=== PATIENT | male | born 1950 | race Caucasian/White ===

== ENCOUNTER 2017-01-29 12:40 | Observation (INO) | payer OTHER, SELFPAY | END 2017-01-31 10:15 | disposition home or self-care (01) | PROVIDERS: Admitting Provider Internal Medicine Adolescent Medicine; Family Provider Internal Medicine Adolescent Medicine; Visit Provider Internal Medicine Adolescent Medicine | DX: J10.1 Influenza due to other identified influenza virus with other respiratory manifestations (principal); E86.0 Dehydration | CPT/HCPCS: 36415; 70450; 71020; 80048; 80053; 85025; 86738; 87040; 87070; 87205; 93005; 94760; 95816; G0378 ==

== ENCOUNTER → 2017-02-05 | Outpatient (CLI) | payer OTHER, SELFPAY | PROVIDERS: Visit Provider Nurse Practitioner Family | DX: N17.9 Acute kidney failure, unspecified (principal) | CPT/HCPCS: 36415; 80053 ==

== ENCOUNTER → 2020-01-08 09:07 | Outpatient (CLI) | payer BC, SELFPAY ==
[2020-01-08 10:08] LABS: Basophils % 0.7 % (0.1-2.0); Eosinophils # 0.3 K/mm3 (0.0-0.4); Eosinophils % 4.7 % (0.1-12.0); Hematocrit 50.4 % (42.0-52.0); Hemoglobin 16.7 g/dL (14.1-18.0); Lymphocytes # 1.4 K/mm3 (0.7-4.5); Lymphocytes % 24.3 % (10-50); Mean Corpuscular HGB Conc 33.1 g/dL (31.8-35.4); Mean Corpuscular Hemoglobin 30.1 pg (27.0-31.2); Mean Platelet Volume 7.3 fl (7.4-10.4); Monocytes # 0.4 K/mm3 (0.1-1.0); Monocytes % 6.8 % (1.7-9.3); Neutrophils # 3.6 K/mm3 (1.8-7.8); Neutrophils % 63.6 % (37.0-80.0); Platelet Count 202 K/mm3 (142-424); Red Blood Count 5.53 M/mm3 (4.60-6.20); Red Cell Distribution Width 13.7 % (11.5-17.5); White Blood Count 5.7 K/mm3 (4.8-10.8)
[2020-01-08 11:09] LABS: Chloride 105 mmol/L (98-107); Potassium 4.5 mmoL/L (3.5-5.1); Sodium 140 mmol/L (136-145)
[2020-01-08 11:11] LABS: Blood Urea Nitrogen 24 mg/dl (9-20); Estimated Glomerular Filt Rate 55 ml/min (>60); GFR (African American) 67 ML/MIN (>60)
[2020-01-08 11:12] LABS: Alanine Aminotransferase 26 U/L (12-78); Albumin Level 4.3 g/dl (3.5-5.0); Albumin/Globulin Ratio 1.5 (1.1-1.8); Alkaline Phosphatase 97 U/L (38-126); Anion Gap 10.5 mEq/L (5-15); Aspartate Amino Transferase 25 U/L (17-59); Bilirubin,Total 0.8 mg/dl (0.2-1.3); Calcium 9.4 mg/dl (8.4-10.2); Carbon Dioxide 29 mmol/L (22.0-30.0); Cholesterol 210 mg/dl (140-200); Globulin 2.9 g/dL (1.3-3.2); Glucose 108 mg/dl (74-100); HDL Cholesterol 30 mg/dl (40-60); Total Protein,Serum 7.2 g/dl (6.3-8.2); Triglycerides 224 mg/dl (30-150); VLDL Cholesterol 45 mg/dL (0-40)
[2020-01-08 11:24] LABS: Direct LDL Cholesterol 130.21 mg/dL (100-129)
[2020-01-08 12:51] LABS: Hemoglobin A1C 5.7 % (4.0-6.0)
[2020-01-08 18:51] LABS: Prostate Specific Ag Screen 0.5 ng/ml (0.0-4.0)
== END ==
PROVIDERS: Visit Provider Internal Medicine Adolescent Medicine
DX: R73.9 Hyperglycemia, unspecified (principal); K21.9 Gastro-esophageal reflux disease without esophagitis
CPT/HCPCS: 36415; 80053; 80061; 83036; 85025; G0103

== ENCOUNTER → 2020-10-14 08:39 | Outpatient (CLI) | payer BC, SELFPAY | PROVIDERS: Visit Provider Urology | DX: Z01.812 Encounter for preprocedural laboratory examination (principal); Z20.822 Contact with and (suspected) exposure to COVID-19; C67.9 Malignant neoplasm of bladder, unspecified | CPT/HCPCS: U0003 ==

== ENCOUNTER 2020-10-17 08:04 | Day surgery (SDC) | payer BC, SELFPAY ==
[2020-10-11 13:59] VITALS: BMI 32.3
[2020-10-17 08:19] VITALS: BP 113/63; PULSE 66; RESP 18; TEMP 36.2; O2SAT 97
[2020-10-17 09:43] VITALS: BP 146/94; PULSE 64; RESP 16; TEMP 36.4; O2SAT 96
--- NOTE | 2020-10-17 12:05 | HMH.OPNOTE ---
Date of procedure: 10/17/20 Pre-op Diagnosis:: History of bladder cancer Post-op Diagnosis:: History of bladder cancer without evidence of recurrence today Procedure performed:: Surveillance cystoscopy Surgeon:: Timothy Serrano MD Anesthesia: local Estimated blood loss (mL): 0 Clinical Note:: Patient is a 69-year-old white male with a history of bladder cancer. He was initially diagnosed in 2012 and was treated with TURBT. He has had no recurrences since then and presents for surveillance cystoscopy today. He denies any interval gross hematuria or lower urinary tract symptoms. Operative findings:: No evidence of bladder tumor recurrence today. Operative note:: Patient taken to the cystoscopy suite after informed consent was obtained. He was prepped and draped in the standard surgical fashion and 2% lidocaine placed into the urethra and the urethra clamped for 5 minutes. After 5 minutes the flexible cystoscope introduced into the urethral meatus. Passed to the prostatic urethra which showed some moderate hyperplasia. The bladder was entered and examined in a systematic fashion. There is no evidence of bladder tumor recurrence or other mucosal abnormalities. There is no evidence of trabeculation, cellules or diverticula. The ureteral orifices in their normal anatomic position with clear efflux of urine. The scope was retroflexed showing a small median lobe. Scope then removed. The patient tolerated the procedure well and there were no complications. We discussed the findings today and the we will see him back in 1 year for surveillance. Condition: stable Disposition: same day Specimens:: None Complications:: None
== END 2020-10-17 09:52 | disposition home or self-care (01) ==
LOC: OUTP 08:06
PROVIDERS: PCP Internal Medicine Adolescent Medicine; Visit Provider Urology
PROC: (CPT 52000; principal; 2020-10-17 09:00)
DX: Z08 Encounter for follow-up examination after completed treatment for malignant neoplasm (principal); Z85.51 Personal history of malignant neoplasm of bladder; Z90.6 Acquired absence of other parts of urinary tract; K21.9 Gastro-esophageal reflux disease without esophagitis; M19.90 Unspecified osteoarthritis, unspecified site; Z90.49 Acquired absence of other specified parts of digestive tract; Z83.3 Family history of diabetes mellitus; Z82.49 Family history of ischemic heart disease and other diseases of the circulatory system; Z80.9 Family history of malignant neoplasm, unspecified
CPT/HCPCS: 52000

== ENCOUNTER → 2021-02-17 15:10 | Outpatient (CLI) | payer BC, SELFPAY | PROVIDERS: Visit Provider Nurse Practitioner Family | DX: U07.1 COVID-19 (principal) | CPT/HCPCS: C9803; U0003; U0005 ==

== ENCOUNTER → 2021-06-20 14:16 | Outpatient (CLI) | payer BC, SELFPAY ==
--- NOTE | 2021-06-20 14:22 | CA_ITS ---
APPROVED REPORT EXAM: Comprehensive 2D, Doppler, and color-flow Echocardiogram Tobacco Prevention Health Educator: Yasmeen Bass RVT Ht: 6 ft 0 in Wt: 233lbs BSA: 2.27 BP: 140/82 mmHg Indications: DYSPENA,DIZZINESS 2D Dimensions LVOT 2.03 cm (M/F) 1.5-2.5 LA Volume 24.90 mL LA Volume Index 10.96 mL/m2 (M/F) 16-34 M-Mode Dimensions RVDd 2.49 cm (0.9-2.6) LA Diam 4.08 cm (1.9-4.0) LVDd 4.55 cm (3.5-5.7) Ao Diam 3.63 cm (2.0-3.7) LVDs 2.74 cm (3.5-5.7) IVSd 1.49 cm (0.6-1.1) PWd 0.97 cm (0.6-1.1) EF (Teich) 70.50% FS 39.80% EDV (Teich) 94.90 mL TAPSE 2.81 (<1.7) ESV (Teich) 28.00 mL LV Diastology E Decel Time 187.00 (160-240 msec) E/A Ratio 0.7 MED E' 6.90 (< 7 cm/sec) E'/MED E' Ratio 9.38 (>14) LAT E' 8.50 (<10 cm/sec) E/LAT E' Ratio 7.61 (>14) Aortic Valve AO Peak GR. 7.90 mmHg Mitral Valve MV E Max Avery. 65.00 (40-130 cm/s) MV A Velocity 88.00 (40-130 cm/s) E/A Ratio 0.74 MV Decel. Time 187.00 (160-240 ms) MV PHT 55.00 ms Pulmonary Valve PV Peak Velocity 79.00 (50-150 cm/s) Tricuspid Valve TR P. Velocity 281.00 cm/s RAP Estimate 10.00 mmHg RVSP 41.70 mmHg Left Ventricle Left atrium is mildly enlarged, left ventricle is normal size, mild concentric left ventricular hypertrophy, estimated ejection fraction 55% with no regional wall motion abnormality, grade 1 diastolic dysfunction seen without tissue Doppler evidence of raise left atrial pressure. Right Ventricle Right atrium and right ventricle are normal size and contractility. Aortic Valve Aortic valve is minimally thickened and calcified without aortic stenosis, there is trace aortic insufficiency. Mitral Valve Mitral valve is grossly normal, there is trace mitral regurgitation. Tricuspid Valve Tricuspid grossly normal, there is trace tricuspid regurgitation, tricuspid regurgitation jet velocity is inadequate for calculation of the right ventricular systolic pressure. Pulmonic Valve Pulmonic valve is poorly visualized. Great Vessels Aortic root is normal size. Inferior vena cava is poorly visualized. Pericardium No significant pericardial effusion noted. Conclusion 1. Mildly enlarged left atrium, normal left ventricular size, mild concentric left ventricular hypertrophy, estimated ejection fraction 55% with no regional wall motion abnormality, grade 1 diastolic dysfunction seen without tissue Doppler evidence of raise left atrial pressure. 2. Trace aortic, mitral and tricuspid regurgitation. 3. No significant pericardial effusion. 4. Inferior vena cava is poorly visualized. Electronically signed by : Silver Kang MD 06/20/2021 21:33:59
--- NOTE | 2021-06-20 14:22 | CA_ITS ---
FINAL REPORT TECHNIQUE: Color Doppler, duplex Doppler and sullivan scale sonography of the bilateral neck arterial vasculature was performed. Velocities were measured in the carotid arteries. Stenosis evaluation based on the validated velocity criteria. CLINICAL HISTORY: DIZZINESS,HTN FINDINGS: The peak systolic velocity of the right common carotid artery is 85 cm/s. The peak systolic velocity of the right internal carotid artery is 90 cm/s and end diastolic velocity 21 cm/s. The ICA/CCA ratio is 1.06. A mild amount of plaque is present. The right external carotid artery is patent. The right vertebral artery is patent with antegrade flow. The peak systolic velocity of the left common carotid artery is 117 cm/s. The peak systolic velocity of the left internal carotid artery is 104 cm/s and end diastolic velocity 26 cm/s. The ICA/CCA ratio is 1.13. A mild amount of plaque is present. The left external carotid artery is patent.The left vertebral artery is patent with antegrade flow. IMPRESSION: Less than 50% bilateral carotid stenosis. Bilateral patent vertebral arteries with antegrade flow. Reviewed, Interpreted and Dictated by Servando Vazquez III, MD Transcribed by Medina Johnson Authenticated by Servando Vazquez III, MD on 06/20/2021 04:32:[address] [facility]
== END ==
LOC: RT 14:17
PROVIDERS: PCP Internal Medicine Adolescent Medicine; Visit Provider Nurse Practitioner Family
DX: R03.0 Elevated blood-pressure reading, without diagnosis of hypertension (principal); R29.898 Other symptoms and signs involving the musculoskeletal system
CPT/HCPCS: 93306; 93880

== ENCOUNTER → 2021-10-13 09:15 | Outpatient (CLI) | payer OTHER, SELFPAY | PROVIDERS: PCP Internal Medicine Adolescent Medicine; Visit Provider Urology | DX: Z01.812 Encounter for preprocedural laboratory examination (principal); Z20.822 Contact with and (suspected) exposure to COVID-19; C67.9 Malignant neoplasm of bladder, unspecified | CPT/HCPCS: C9803; U0003; U0005 ==

== ENCOUNTER 2021-10-16 10:34 | Day surgery (SDC) | payer OTHER, SELFPAY ==
[2021-10-16 10:51] VITALS: BP 148/74; PULSE 74; RESP 17; TEMP 36.3; O2SAT 96; BMI 34.4
[2021-10-16 11:19] VITALS: BP 163/79; PULSE 64; RESP 18; TEMP 37.1; O2SAT 96
--- NOTE | 2021-10-16 11:22 | EXP.OP.NOTE ---
Date of procedure: 10/16/21 Pre-op Diagnosis:: History of bladder cancer Post-op Diagnosis:: History of bladder cancer without evidence of recurrence today Procedure performed:: Surveillance cystoscopy Surgeon:: Timothy Serrano MD Anesthesia: local Estimated blood loss (mL): 0 Clinical Note:: 70-year-old white male with history of bladder cancer. His initial tumor was noted in 2012 and he underwent TURBT. He has had no recurrences since then. Operative findings:: No evidence of bladder tumor recurrence today. Operative note:: Patient taken to the cystoscopy suite after informed consent was obtained. While on the stretcher he was prepped and draped in the standard surgical fashion in the supine position. 2% lidocaine placed into the urethra and clamped for 5 minutes. After 5 minutes the flexible cystoscope introduced into the urethral meatus. Passed to the prostatic urethra which showed trilobar hyperplasia. The bladder was entered and examined in a systematic fashion. There is no evidence of recurrent bladder tumors, mucosal abnormalities, stones, trabeculation or cellule formation. The ureteral orifices in their normal anatomic position with clear efflux of urine. Scope was retroflexed showing no evidence of a median lobe. Scope then removed. Patient tolerated procedure well. We will see him back in 1 year with surveillance cystoscopy. We discussed at that time he would be 10 years out from his initial bladder tumor in the we may suspend any further cystoscopies after that. Condition: stable Disposition: same day Specimens:: None Complications:: None
== END 2021-10-16 11:24 | disposition home or self-care (01) ==
PROVIDERS: PCP Internal Medicine Adolescent Medicine; Visit Provider Urology
PROC: (CPT 52000; principal; 2021-10-16 11:30)
DX: Z12.6 Encounter for screening for malignant neoplasm of bladder (principal); Z85.51 Personal history of malignant neoplasm of bladder
CPT/HCPCS: 52000

== ENCOUNTER → 2022-06-05 06:10 | Outpatient (CLI) | payer MEDICARE, SELFPAY ==
--- NOTE | 2022-06-05 06:22 | US_ITS ---
FINAL REPORT CLINICAL HISTORY: Scrotal mass FINDINGS: Sonographic images of the scrotum were obtained. There is a 3.1 cm cystic mass in the right hemiscrotum, may represent a large epididymal cyst or other cystic mass. There is a 2nd mass in the right hemiscrotum measuring 1.2 cm which appears solid. Finding is worrisome for neoplasm. Small hydroceles are seen bilaterally. IMPRESSION: Two masses in the right hemiscrotum of uncertain etiology. Consider follow-up in 3-6 months. Reviewed, Interpreted and Dictated by Servando Vazquez III, MD Transcribed by Susu Yates Authenticated and [facility] [place]
== END ==
LOC: RAD 06:11
PROVIDERS: PCP Internal Medicine Adolescent Medicine; Visit Provider Urology
DX: N50.89 Other specified disorders of the male genital organs (principal)
CPT/HCPCS: 76870

== ENCOUNTER → 2022-09-05 14:35 | Outpatient (CLI) | payer MEDICARE, SELFPAY ==
--- NOTE | 2022-09-05 14:38 | US_ITS ---
FINAL REPORT TECHNIQUE: Sonographic images of the testicles and scrotum were obtained in the longitudinal and transverse planes. CLINICAL HISTORY: CYST COMPARISON: 06/05/2022 FINDINGS: The right testicle measures 3.6 x 2.3 x 2.9 centimeters. There is no intratesticular mass. There is a hypoechoic extratesticular mass measuring 2.5 cm with low-level internal echoes. No internal blood flow. The left testicle measures 3.8 x 2.0 x 3.5 centimeters. There is no intratesticular mass. The epididymis is within normal limits. There is a small left varicocele. Color imaging reveals no evidence of testicular torsion. IMPRESSION: No evidence of intratesticular mass or testicular torsion. Extratesticular hypoechoic mass right hemiscrotum with no internal blood flow. This is different in echogenicity than on prior and could represent complex spermatocele. If not obtained previously, consider urologic consult. Reviewed, Interpreted and Dictated by Yamilka Vu MD Transcribed by Yusra John Authenticated and [facility]
== END ==
LOC: RAD 14:35
PROVIDERS: PCP Internal Medicine Adolescent Medicine; Visit Provider Urology
DX: N50.3 Cyst of epididymis (principal)
CPT/HCPCS: 76870

== ENCOUNTER → 2023-01-24 07:46 | Outpatient (CLI) | payer MEDICARE, SELFPAY ==
--- NOTE | 2023-01-24 07:51 | US_ITS ---
FINAL REPORT TECHNIQUE: Ultrasound images of the abdominal aorta were obtained. CLINICAL HISTORY: AAA SCREENING COMPARISON: None FINDINGS: ULTRASOUND OF THE ABDOMINAL AORTA The aorta measures up to 2.3 cm. The bifurcation is normal. IMPRESSION: No evidence of abdominal aortic aneurysm. Reviewed, Interpreted and Dictated by Servando Vazquez III, MD Transcribed by Yusra John Authenticated and [facility]
== END ==
LOC: RAD 07:47
PROVIDERS: PCP Nurse Practitioner Family; Visit Provider Nurse Practitioner Family
DX: Z82.49 Family history of ischemic heart disease and other diseases of the circulatory system (principal); Z13.6 Encounter for screening for cardiovascular disorders
CPT/HCPCS: 76705

== ENCOUNTER 2023-05-21 09:32 | Outpatient (CLI) | payer MEDICARE, SELFPAY ==
--- NOTE | 2023-05-21 09:41 | XR_ITS ---
FINAL REPORT CLINICAL HISTORY: COUGH..cold x 3 to 4 weeks COMPARISON: None FINDINGS: Two views of the chest were obtained. The heart size and pulmonary vascularity are within normal limits. The mediastinum is normal. There are mild bibasilar opacities which are favored to represent atelectasis over pneumonia. There is no pneumothorax. The bony thorax is intact. IMPRESSION: Mild bibasilar opacities favor atelectasis over pneumonia. Reviewed, Interpreted and Dictated by Servando Vazquez III, MD Transcribed by Yusra John Authenticated and [facility]
== END 2023-05-21 23:59 ==
PROVIDERS: PCP Nurse Practitioner Family; Visit Provider Nurse Practitioner Family
DX: R05.3 Chronic cough (principal)
CPT/HCPCS: 71046

== ENCOUNTER → 2023-10-03 09:50 | Day surgery (SDC) | payer MEDICARE, SELFPAY ==
[2023-10-01 09:56] VITALS: BMI 35.4
[2023-10-03] VITALS (7 sets, daily range): BP systolic 104–163; BP diastolic 67–93; PULSE 55–69; RESP 16–18; TEMP 36.3; O2SAT 93–97
[2023-10-03] MEDS: LACTATED RINGERS 1000ML 1,000 ML 25 ML IV (10:01)
--- NOTE | 2023-10-03 11:16 | EXP.ANES.CKL ---
[facility] Disclaimer: The information contained in this section may have been updated after the patient was seen, as this information can be updated by other users. Medical History Colonoscopy planned Arthropathy of ankle and foot Rotator cuff arthropathy of right shoulder Acid reflux Bladder cancer Surgical History History of appendectomy Family History Other No significant family history Social History Smoking Status: Never smoker second hand exposure: No alcohol intake: never substance use type: denies use current occupational status: employed and retired Travel in the last 8 weeks: None household members: spouse housing: house current occupation: lead electrician current occupational exposures/hazards: Yes caffeine: Yes [facility] Anesthesia Checklist Patient Identification Patient Identification: Arm Band Structural Data Admitted From: Home Planned Operative Procedure/s: EGD/Colonoscopy Consent for Planned Operative Procedure(s) Verified: Yes Verified Documents: Surgical Consent and History and Physical NPO Status Verified Time NPO: 00:00 Additional verifications Anesthesia Reactions: No Airway Assessment Mallampati Score:: Class II C-Spine Mobility Assessed: Yes TMJ Mobility Assessed: Yes Dentition: Good Dentition Neurological Assessment Level of Consciousness: Awake, Alert and Appropriate Anesthesia Plan Anesthesia Risk discussed: Yes Anesthesia Plan: Verified ASA Class: II Anesthesia Type: MAC
--- NOTE | 2023-10-03 11:31 | HMH.SCOPE ---
Procedure: Date: 10/03/23 Patient Date of :: 1950 Procedure Performed:: EGD & biopsies Indications:: Chronic GERD Performing Provider:: Emilio Martinez MD Referring Provider:: Mela Sellers APRN Sedation:: Propofol Procedure:: The gastroscope was gently passed through the incisoral orifice into the oral cavity and under direct visualization the esophagus was intubated. The endoscope was passed down the esophagus, through the stomach, and into the duodenum. Color, texture, mucosa, and anatomy of the esophagus, stomach, and duodenum were carefully examined with the scope. Findings:: Oropharynx: normal Esophagus: Area of whitish plaques distal esophagus near EG junction, biopsied, EG Junction: intact at 40 cm, small hiatus hernia noted Cardia: normal Fundus: normal Body: normal Antrum: normal Duodenal bulb: normal Duodenum (second and third portion): normal Impression: Leukoplakia of distal esophagus Small hiatus hernia Specimens:: Esophagus Recommendations:: Repeat EGD and biopsies in 1-2 years or sooner in view of current findings pending pathology results Complications:: None Estimated blood obtained (mL): 0 Colonoscopy Component Colonoscopy Component Was a colonoscopy performed during today's procedure?: No
--- NOTE | 2023-10-03 11:37 | HMH.SCOPE ---
Procedure: Date: 10/03/23 Patient Date of :: 1950 Procedure Performed:: Colonoscopy and polypectomy Indications:: Colon cancer screening Performing Provider:: Emilio Martinez MD Referring Provider:: Mela Sellers APRN Sedation:: Propofol Procedure:: After placing the patient in the left lateral decubitus position, the colonoscopy was gently inserted into the rectum and under direct visualization advanced to the cecum which was identified by transillumination in the right lower quadrant, identification of the ileocecal valve, appendiceal orifice, and cecal strap. Color, texture, mucosa, and anatomy of the colon were carefully examined with the scope. Findings:: Anal canal: normal Rectum: normal Sigmoid colon: normal without polyps or inflammatory changes, multiple diverticuli noted Descending colon: normal without polyps or inflammatory changes Splenic flexure: normal Transverse colon: normal, 0.75 cm adenomatous polyp identified in distal region, snared and removed. Hepatic flexure: normal Ascending colon: normal without polyps or inflammatory changes, scattered diverticuli noted Cecum: normal Terminal ileum: not visualized Impression: Adenomatous colon polyp, distal transverse colon Scattered diverticulosis Specimens:: Polyp Recommendations:: Follow up examination in about THREE years or so, sooner if clinically indicated in view of findings of polyps. Complications:: None Estimated blood obtained (mL): 0 Colonoscopy Component Colonoscopy Component Was a colonoscopy performed during today's procedure?: Yes Recommended follow up colonoscopy of at least 10 years?: No If no, follow up colonoscopy recommended in ___ years?: Three Reason for not recommending >/= 10 yr follow-up interval?: Polyp
== END | disposition home or self-care (01) ==
PROVIDERS: PCP Nurse Practitioner Family; Visit Provider Internal Medicine Gastroenterology
PROC: 0DJ08ZZ Inspection of Upper Intestinal Tract, Via Natural or Artificial Opening Endoscopic (ICD-10-PCS; CPT 43235; principal; 2023-10-03 11:00)
DX: Z12.11 Encounter for screening for malignant neoplasm of colon (principal); Z86.010 Personal history of colon polyps; K57.90 Diverticulosis of intestine, part unspecified, without perforation or abscess without bleeding; K22.89 Other specified disease of esophagus; K44.9 Diaphragmatic hernia without obstruction or gangrene; K21.9 Gastro-esophageal reflux disease without esophagitis; D12.3 Benign neoplasm of transverse colon
CPT/HCPCS: 43239; 45385; 88305; J7120

== ENCOUNTER 2024-02-24 14:26 | Emergency (ER) | payer MEDICARE, SELFPAY ==
[2024-02-24] VITALS (14 sets, daily range): BP systolic 142–184; BP diastolic 92–134; PULSE 65–89; RESP 18–20; TEMP 36.8–37.1; O2SAT 92–98; BMI 31.8
--- NOTE | 2024-02-24 14:37 | ECG_ITS ---
APPROVED REPORT Exam: Resting ECG HR:84 bpm ECG Measurements Heart Rate 84 AXES MT 177 P 26 QRSd 93 QRS 25 QT 347 T 20 QTc 388 Conclusion SINUS RHYTHM NORMAL ECG UNCONFIRMED REPORT Electronically signed by : MACHO FRANCIS, 02/28/2024 05:50:21
--- NOTE | 2024-02-24 14:40 | CT_ITS ---
FINAL REPORT TECHNIQUE: Multiple axial CT angiography images were performed from the foramen magnum to the vertex before and during IV contrast administration. This study was performed with techniques to keep radiation doses as low as reasonably achievable (ALARA). Individualized dose reduction techniques using automated exposure control or adjustment of mA and/or kV according to the patient's size were employed. CLINICAL HISTORY: possible stroke, L dysequilibrium FINDINGS: CTA HEAD: The major intracranial arterial system is patent without hemodynamically significant stenosis or major vessel occlusion.No aneurysm is identified. IMPRESSION: No acute intracranial hemorrhage or large acute cortical infarct. No evidence of vascular injury, aneurysm, hemodynamically significant stenosis or major vessel occlusion of the intracranial arterial system. Reviewed, Interpreted and Dictated by Fransisco Stoddard MD Transcribed by Lara Jennings Authenticated and [facility]
--- NOTE | 2024-02-24 14:40 | CT_ITS ---
FINAL REPORT TECHNIQUE: Axial CT images were performed through the head. Coronal reformatted images were submitted. This study was performed with techniques to keep radiation doses as low as reasonably achievable (ALARA). Individualized dose reduction techniques using automated exposure control or adjustment of mA and/or kV according to the patient's size were employed. CLINICAL HISTORY: possible stroke, L dysequilibrium FINDINGS: Small low-attenuation foci are seen in the deep white matter bilaterally, right greater than left likely related to old lacunar infarcts. The ventricles are normal in size. There is no evidence of hemorrhage. There is no mass or edema identified. There is no abnormal extra-axial fluid seen. There is mild mucoperiosteal thickening of the left maxillary sinus. IMPRESSION: No acute intracranial process. Reviewed, Interpreted and Dictated by Fransisco Stoddard MD Transcribed by Lara Jennings Authenticated and [facility]
--- NOTE | 2024-02-24 14:40 | CT_ITS ---
FINAL REPORT TECHNIQUE: NASCET technique utilized for stenosis evaluation. CLINICAL HISTORY: possible stroke, L dysequilibrium FINDINGS: RIGHT CAROTID: There is extensive plaque at the right carotid bulb with significant stenosis at the apex. This is best seen on axial image 68 of series 6. Stenosis measures approximately 70%. LEFT CAROTID: Bulky calcification is seen at the origin of the left ICA with less than 50% stenosis. VERTEBRALS: The vertebrals are patent and symmetric. No significant stenosis is present. IMPRESSION: Significant stenosis at the right carotid bulb apex of approximately 70%. Less than 50% stenosis of the origin of the left ICA. Reviewed, Interpreted and Dictated by Fransisco Stoddard MD Transcribed by Lara Jennings Authenticated and [facility]
--- NOTE | 2024-02-24 14:41 | ED_ITS ---
Discharge Plan Disposition Patient Disposition: Xfer Short-Term Hosp Chief Complaint: Neuro Symptoms/Deficit Prescriptions Prescriptions: No Action levocetirizine [Xyzal] 5 mg Tablet 5 mg PO DAILY aspirin 81 mg Capsule 81 mg PO DAILY Referrals Follow up/Referrals: Mela Sellers APRN [Primary Care Provider] - See instructions Clinical Impressions Clinical Impression: Carotid artery stenosis, symptomatic, Acute left-sided weakness Print Language Print Language: [place] Discharge ED Provider: Ricky Carbajal General Adult HPI <Darwin Cervantes MD - Last Filed: 02/24/24 15:03> General Chief complaint: Neuro Symptoms/Deficit Stated complaint: numbness L side Time Seen by Provider: 02/24/24 14:38 History of Present Illness HPI narrative: Patient is 73-year-old male with past medical history of hyperlipidemia who presents emergency department for evaluation of strokelike symptoms. Onset was acute, 8:30 AM this morning he had tingling as if it was static he with his arm asleep followed by an similar feeling in his left lower extremity. No right- sided symptoms, no visual symptoms or speech difficulty at that time. Throughout the morning and has progressed from paresthesias to feelings of disequilibrium in his left arm and left leg. Some subjective weakness in coordination of his movements. No trauma. No chest pain. No other acute complaints at this time. Related Data Home Medications ?Medication ?Instructions ?Recorded ?Confirmed aspirin 81 mg capsule 81 mg PO DAILY . 10/16/21 10/16/21 levocetirizine 5 mg tablet (Xyzal) 5 mg PO DAILY Allergy symptoms 10/16/21 10/16/21 Allergies Allergy/AdvReac Type Severity Reaction Status Date / Time No Known Allergies Allergy Verified 02/17/21 12:57 PFS <Darwin Cervantes MD - Last Filed: 02/24/24 15:03> [facility] Disclaimer: The information contained in this section may have been updated after the patient was seen, as this information can be updated by other users. Medical History (Updated 02/24/24 @ 17:54 by Ricky Carbajal MD) Colonoscopy planned Arthropathy of ankle and foot Rotator cuff arthropathy of right shoulder Acid reflux Bladder cancer Surgical History History of appendectomy Family History Other No significant family history Social History Smoking Status: Never smoker second hand exposure: No alcohol intake: never substance use type: denies use current occupational status: employed and retired Travel in the last 8 weeks: None household members: spouse housing: house current occupation: chief electrician current occupational exposures/hazards: Yes caffeine: Yes Have you lived/traveled outside [place] in past 30 days?: No Contact w/someone who lives/traveled outside US past 30 days?: No Exposure to someone with infectious disease in past 14 days?: No Do you have a fever (greater than 100.4 F or 38 C)?: No Have you tested positive for COVID-19: No Exposed to someone with COVID-19 in past 14 days?: No Do you have a sore throat?: No Do you have a cough?: No Do you have any weakness?: No Do you have any diarrhea?: No Are you experiencing any unusual bleeding?: No Do you have any muscle aches/pain?: No Do you have any abdominal pain?: No Are you experiencing loss of taste or smell?: No Other Medical History Have you received the Flu Vaccine for this season: No Have you received the Pneumonia Vaccine: No <Darwin Cervantes MD - Last Filed: 02/24/24 15:03> ROS Obtained: Yes Systems reviewed as appropriate & no additional complaints except as documented Physical Exam <Darwin Cervantes MD - Last Filed: 02/24/24 15:03> General General appearance: alert and in no apparent distress Head Head exam: atraumatic and normocephalic Eye Eye exam: Present PERRL ENT ENT exam: Present mucous membranes moist Neck Neck exam: Present normal inspection Chest Chest inspection: Present normal inspection and symmetric chest wall rise Respiratory Respiratory exam: Present normal lung sounds bilaterally; Absent respiratory distress Cardiovascular Cardiovascular exam: Present regular rate and normal rhythm Abdominal Exam Abdominal exam: Present soft; Absent tenderness Extremities Exam Extremities exam: Present normal inspection Neurological Exam Neurological exam: Present alert, CN II-XII intact and other; Absent motor sensory deficit Psychiatric Psychiatric exam: Present normal affect Skin Skin exam: Present warm and dry Medical Decision Making <Darwin Cervantes MD - Last Filed: 02/24/24 15:03> Medical Records Screening: Per USPSTF and CDC recommendations, given the prevalence of disease in our region, it is our hospital?s policy to screen for HIV and viral Hepatitis for all patients aged 18 and over and those with ongoing risk factors. Thom Inquiry Pt receiving controlled substance: No Vital Signs: 02/24/24 14:28 02/24/24 14:36 02/24/24 15:31 Temperature 98.2 F Temperature Source Oral Pulse Rate 78 68 Pulse Rate [Left Radial] 89 Respiratory Rate 20 Blood Pressure 184/101 H 152/92 H Blood Pressure [Right Arm] 184/101 H Blood Pressure Mean [Right Arm] 128 02 Sat by Pulse Oximetry 92 L 92 L 94 L Oxygen Delivery Method Room Air Room Air Room Air 02/24/24 15:48 02/24/24 16:00 02/24/24 16:30 Temperature Temperature Source Pulse Rate 72 67 65 Pulse Rate [Left Radial] Respiratory Rate Blood Pressure 142/101 H 154/99 H 145/95 H Blood Pressure [Right Arm] Blood Pressure Mean [Right Arm] 02 Sat by Pulse Oximetry 95 98 96 Oxygen Delivery Method Room Air Room Air Room Air Lab Data Lab Results 02/24/24 14:40: WBC 8.9, RBC 5.93, Hgb 16.7, Hct 49.2, MCV 83.0, MCH 28.2, MCHC 33.9, RDW 13.2, Plt Count 204, MPV 9.1, Neut % (Auto) 71.8, Lymph % (Auto) 16.5, [place] % (Auto) 8.1, Eos % (Auto) 2.1, Baso % (Auto) 0.9, Neut # (Auto) 6.4, Lymph # (Auto) 1.5, [place] # (Auto) 0.7, Eos # (Auto) 0.2, Baso # (Auto) 0.1, PT 11.4, INR 1.02, APTT 29.4, Sodium 140, Potassium 4.5, Chloride 105, Carbon Dioxide 25, Anion Gap 14.5, BUN 20, Creatinine 1.30 H, Estimated Creat Clear 76, Estimated GFR 54 L, Est GFR ( Amer) 66, Glucose 98, Calcium 10.1, Total Bilirubin 0.8, AST 32, ALT 26, Alkaline Phosphatase 95, Troponin I < 0.01, Total Protein 8.2, Albumin 4.9, Globulin 3.3 H, Albumin/Globulin Ratio 1.5, Triglycerides 349 H, Cholesterol 242 H, LDL Cholesterol Direct 120.58, VLDL Cholesterol 70 H, HDL Cholesterol 29 L, Cholesterol/HDL Ratio 8.3 H, Plasma/Serum Alcohol < 10 02/24/24 15:49: Urine Color Yellow, Urine Appearance Clear, Urine pH 6.0, Ur Specific [place] 1.010, Urine Protein Negative, Urine Glucose (UA) Negative, Urine Ketones Negative, Urine Blood Trace-l, Urine Nitrate Negative, Urine Bilirubin Negative, Urine Urobilinogen 0.2, Ur Leukocyte Esterase Negative, Urine RBC Occasional, Urine WBC Occasional, Ur Squamous Epith Cells Occasional, Urine Bacteria 1+, Urine Opiates Screen Negative, Urine Methadone Screen Negative, Ur Barbituates Screen Negative, Ur Phencyclidine Scrn Negative, Ur Amphetamines Screen Negative, U Benzodiazepines Scrn Negative, Urine Cocaine Screen Negative, U Marijuana (THC) Screen Negative 02/24/24 14:40 02/24/24 14:40 Orders (Tests/Meds): ED MEDICATIONS Generic Name Dose Route Start Last Admin Trade Name Freq PRN Reason Stop Dose Admin Sodium Chloride 10 ml 02/24/24 14:40 Sodium Chloride 0.9% 10ml Flush Syringe IV 03/25/24 14:39 NEEDED PRN Maintain IV Site Discontinued Medications Generic Name Dose Route Start Last Admin Trade Name Freq PRN Reason Stop Dose Admin Clopidogrel Bisulfate 150 mg 02/24/24 17:19 02/24/24 17:24 Clopidogrel 75mg Tab PO 02/24/24 17:20 150 mg ONCE ONE Administration Iopamidol 80 ml 02/24/24 15:17 02/24/24 15:20 Iopamidol-370 (76%);100ml Bottle IV 02/24/24 15:18 80 ml ONCE ONE Administration Sodium Chloride 50 ml 02/24/24 15:17 02/24/24 15:20 0.9 % Sodium Chloride 50 Ml Vial IV 02/24/24 15:18 50 ml ONCE ONE Administration Sodium Chloride 10 ml 02/24/24 15:17 02/24/24 15:20 Sodium Chloride 0.9% 10ml Syr (Rad Only) IV 02/24/24 15:18 10 ml ONCE ONE Administration ORDERS Category Date Time Status CT angio head Stat Cat Scan 02/24/24 14:[address] angio neck Stat Cat Scan 02/24/24 14:[address] head/brain wo con Stat Cat Scan 02/24/24 14:40 Completed Activated Partial Thrombo Time Stat Lab 02/24/24 14:40 Completed Complete Blood Count Auto Diff Stat Lab 02/24/24 14:40 Completed Comprehensive Metabolic Panel Stat Lab 02/24/24 14:40 Completed Drug Screen,Urine Stat Lab 02/24/24 15:49 Completed Ethyl Alcohol Stat Lab 02/24/24 14:40 Completed Lipid Panel Stat Lab 02/24/24 14:40 Completed Prothrombin Time INR Stat Lab 02/24/24 14:40 Completed Troponin I Stat Lab 02/24/24 14:40 Completed Urinalysis and Microscopic Stat Lab 02/24/24 15:49 Completed ECG Data Tracing #1: Independently interpreted by me rate is 84, rhythm is regular, axis is normal, no ST elevation in anatomical contiguous leads, QTc 388. Medical Decision Narrative: Patient is a 73-year-old male with past medical history described above presents emergency department for evaluation of strokelike symptoms. Patient undergo rapid stroke evaluation upon arrival. He is outside the window for thrombolytics. Workup will be conducted with hematologic labs, CT angio head and neck, noncontrasted CT scan of the head. EKG will be obtained. He has subjective disequilibrium and intermittent altered sensorium however he is able to feel the same sensation on both sides, has no posterior circulation signs on exam and does not have any objective weakness on exam. Workup and hematologic labs laterally are pending at time of transfer of care to the oncoming physician, Dr. Carbajal. <Ricky Carbajal MD - Last Filed: 02/24/24 17:54> Vital Signs: 02/24/24 14:28 02/24/24 14:36 02/24/24 15:31 Temperature 98.2 F Temperature Source Oral Pulse Rate 78 68 Pulse Rate [Left Radial] 89 Respiratory Rate 20 Blood Pressure 184/101 H 152/92 H Blood Pressure [Right Arm] 184/101 H Blood Pressure Mean [Right Arm] 128 02 Sat by Pulse Oximetry 92 L 92 L 94 L Oxygen Delivery Method Room Air Room Air Room Air 02/24/24 15:48 02/24/24 16:00 02/24/24 16:30 Temperature Temperature Source Pulse Rate 72 67 65 Pulse Rate [Left Radial] Respiratory Rate Blood Pressure 142/101 H 154/99 H 145/95 H Blood Pressure [Right Arm] Blood Pressure Mean [Right Arm] 02 Sat by Pulse Oximetry 95 98 96 Oxygen Delivery Method Room Air Room Air Room Air Lab Data Lab Results 02/24/24 14:40: WBC 8.9, RBC 5.93, Hgb 16.7, Hct 49.2, MCV 83.0, MCH 28.2, MCHC 33.9, RDW 13.2, Plt Count 204, MPV 9.1, Neut % (Auto) 71.8, Lymph % (Auto) 16.5, [place] % (Auto) 8.1, Eos % (Auto) 2.1, Baso % (Auto) 0.9, Neut # (Auto) 6.4, Lymph # (Auto) 1.5, [place] # (Auto) 0.7, Eos # (Auto) 0.2, Baso # (Auto) 0.1, PT 11.4, INR 1.02, APTT 29.4, Sodium 140, Potassium 4.5, Chloride 105, Carbon Dioxide 25, Anion Gap 14.5, BUN 20, Creatinine 1.30 H, Estimated Creat Clear 76, Estimated GFR 54 L, Est GFR ( Amer) 66, Glucose 98, Calcium 10.1, Total Bilirubin 0.8, AST 32, ALT 26, Alkaline Phosphatase 95, Troponin I < 0.01, Total Protein 8.2, Albumin 4.9, Globulin 3.3 H, Albumin/Globulin Ratio 1.5, Triglycerides 349 H, Cholesterol 242 H, LDL Cholesterol Direct 120.58, VLDL Cholesterol 70 H, HDL Cholesterol 29 L, Cholesterol/HDL Ratio 8.3 H, Plasma/Serum Alcohol < 10 02/24/24 15:49: Urine Color Yellow, Urine Appearance Clear, Urine pH 6.0, Ur Specific [place] 1.010, Urine Protein Negative, Urine Glucose (UA) Negative, Urine Ketones Negative, Urine Blood Trace-l, Urine Nitrate Negative, Urine Bilirubin Negative, Urine Urobilinogen 0.2, Ur Leukocyte Esterase Negative, Urine RBC Occasional, Urine WBC Occasional, Ur Squamous Epith Cells Occasional, Urine Bacteria 1+, Urine Opiates Screen Negative, Urine Methadone Screen Negative, Ur Barbituates Screen Negative, Ur Phencyclidine Scrn Negative, Ur Amphetamines Screen Negative, U Benzodiazepines Scrn Negative, Urine Cocaine Screen Negative, U Marijuana (THC) Screen Negative Orders (Tests/Meds): ED MEDICATIONS Generic Name Dose Route Start Last Admin Trade Name Freq PRN Reason Stop Dose Admin Sodium Chloride 10 ml 02/24/24 14:40 Sodium Chloride 0.9% 10ml Flush Syringe IV 03/25/24 14:39 NEEDED PRN Maintain IV Site Discontinued Medications Generic Name Dose Route Start Last Admin Trade Name Freq PRN Reason Stop Dose Admin Clopidogrel Bisulfate 150 mg 02/24/24 17:19 02/24/24 17:24 Clopidogrel 75mg Tab PO 02/24/24 17:20 150 mg ONCE ONE Administration Iopamidol 80 ml 02/24/24 15:17 02/24/24 15:20 Iopamidol-370 (76%);100ml Bottle IV 02/24/24 15:18 80 ml ONCE ONE Administration Sodium Chloride 50 ml 02/24/24 15:17 02/24/24 15:20 0.9 % Sodium Chloride 50 Ml Vial IV 02/24/24 15:18 50 ml ONCE ONE Administration Sodium Chloride 10 ml 02/24/24 15:17 02/24/24 15:20 Sodium Chloride 0.9% 10ml Syr (Rad Only) IV 02/24/24 15:18 10 ml ONCE ONE Administration ORDERS Category Date Time Status CT angio head Stat Cat Scan 02/24/24 14:[address] angio neck Stat Cat Scan 02/24/24 14:[address] head/brain wo con Stat Cat Scan 02/24/24 14:40 Completed Activated Partial Thrombo Time Stat Lab 02/24/24 14:40 Completed Complete Blood Count Auto Diff Stat Lab 02/24/24 14:40 Completed Comprehensive Metabolic Panel Stat Lab 02/24/24 14:40 Completed Drug Screen,Urine Stat Lab 02/24/24 15:49 Completed Ethyl Alcohol Stat Lab 02/24/24 14:40 Completed Lipid Panel Stat Lab 02/24/24 14:40 Completed Prothrombin Time INR Stat Lab 02/24/24 14:40 Completed Troponin I Stat Lab 02/24/24 14:40 Completed Urinalysis and Microscopic Stat Lab 02/24/24 15:49 Completed Medical Decision Narrative: Patient is a 73-year-old male with past medical history described above presents emergency department for evaluation of strokelike symptoms. Patient undergo rapid stroke evaluation upon arrival. He is outside the window for thrombolytics. Workup will be conducted with hematologic labs, CT angio head and neck, noncontrasted CT scan of the head. EKG will be obtained. He has subjective disequilibrium and intermittent altered sensorium however he is able to feel the same sensation on both sides, has no posterior circulation signs on exam and does not have any objective weakness on exam. Workup and hematologic labs laterally are pending at time of transfer of care to the oncoming physician, Dr. Carbajal. Solomon: I assumed primary responsibility for this patient after signout from previous physician. On my evaluation, patient's NIHSS 4. He has left upper extremity 4 out of 5 strength, left lower extremity 4 out of 5 strength, sensation deficit left upper and left lower extremities as well as mild dysmetria in the left upper extremity. May be related to drip. Independent interpretation of workup demonstrates immediately nonactionable hematologic labs with stable CKD creatinine 1.3. He does have hyperlipidemia, however and he is not on a statin. Patient was given 150 load of Plavix. Independent interpretation of CT imaging with no intracranial hemorrhage, patient does have moderate to severe stenosis of his right extracranial carotid artery which could very likely be causing his symptoms. No obvious, acute stroke on CT head. Patient was given 150 of Plavix since he took his aspirin earlier today. Images were shared to [facility] and stroke neurologist recommended an additional 150 mg of Plavix, this was ordered. Stroke neurology graciously accepted under Dr. Galvan for critical right carotid stenosis. Critical Care <Darwin Cervantes MD - Last Filed: 02/24/24 15:03> Critical Care Time Critical Care Time: No <Ricky Carbajal MD - Last Filed: 02/24/24 17:54> Critical Care Time Critical Care Time: Yes (vascular, neurologic) Attestation: On 02/24/24, the high probability of a clinically significant, sudden or life threatening deterioration of the following system(s) required my full and direct attention, intervention and personal management. The time I documented below is in addition to time spent performing reported procedures but includes the following listed in this critical care notation. Total Time Total Critical Care Time: 45
--- NOTE | 2024-02-24 14:41 | PC.NURSE ---
notified radiology to send pt for ct to r/o stroke, do NOT wait for labs. Dr. Cervantes at bedside
[2024-02-24 14:51] LABS: Basophils # 0.1 K/mm3 (0-0.2); Eosinophils # 0.2 K/mm3 (0.0-0.4); Neutrophils # 6.4 K/mm3 (1.8-7.8)
[2024-02-24 14:55] LABS: Albumin Level 4.9 g/dl (3.5-5.0); Chloride 105 mmol/L (98-107)
[2024-02-24 14:56] LABS: Potassium 4.5 mmoL/L (3.5-5.1); Sodium 140 mmol/L (136-145)
[2024-02-24 14:58] LABS: Alanine Aminotransferase 26 U/L (12-78); Alkaline Phosphatase 95 U/L (38-126); Anion Gap 14.5 mEq/L (5-15); Aspartate Amino Transferase 32 U/L (17-59); Bilirubin,Total 0.8 mg/dl (0.2-1.3); Blood Urea Nitrogen 20 mg/dl (9-20); Carbon Dioxide 25 mmol/L (22.0-30.0); Creatinine Clearance Estimated 76 mL/min (50-200); Estimated Glomerular Filt Rate 54 ml/min (>60); GFR (African American) 66 ML/MIN (>60)
[2024-02-24 14:59] LABS: Albumin/Globulin Ratio 1.5 (1.1-1.8); Calcium 10.1 mg/dl (8.4-10.2); Chol/HDL Ratio 8.3 (1-3.5); Cholesterol 242 mg/dl (140-200); Globulin 3.3 g/dL (1.3-3.2); Glucose 98 mg/dl (74-100); HDL Cholesterol 29 mg/dl (40-60); Total Protein,Serum 8.2 g/dl (6.3-8.2); Triglycerides 349 mg/dl (30-150); VLDL Cholesterol 70 mg/dL (0-40)
[2024-02-24 15:02] LABS: Ethyl Alcohol < 10 mg/dl (0-10)
[2024-02-24 15:03] LABS: Activated Partial Thrombo Time 29.4 seconds (22.8-30.6); INR 1.02 (0.9-1.1); Prothrombin Time 11.4 seconds (10.1-12.5)
[2024-02-24 15:10] LABS: Direct LDL Cholesterol 120.58 mg/dL (100-129)
[2024-02-24 15:19] LABS: Troponin I < 0.01 ng/ml (0.00-0.034)
[2024-02-24] MEDS: IOPAMIDOL-370 (76%);100ML BOTTLE 80 ML IV (15:20)
[2024-02-24] MEDS: SODIUM CHLORIDE 0.9% 10ML SYR (RAD ONLY) 10 ML IV (15:20)
[2024-02-24] MEDS: 0.9 % SODIUM CHLORIDE 50 ML VIAL IV (15:20)
[2024-02-24 15:39] LABS: Basophils % 0.9 % (0.1-2.0); Hemoglobin 16.7 g/dL (14.1-18.0); White Blood Count 8.9 K/mm3 (4.8-10.8)
[2024-02-24 15:53] LABS: Eosinophils % 2.1 % (0.1-12.0); Hematocrit 49.2 % (42.0-52.0); Lymphocytes # 1.5 K/mm3 (0.7-4.5); Lymphocytes % 16.5 % (10-50); Mean Corpuscular HGB Conc 33.9 g/dL (31.8-35.4); Mean Corpuscular Hemoglobin 28.2 pg (27.0-31.2); Mean Platelet Volume 9.1 fl (7.4-10.4); Monocytes # 0.7 K/mm3 (0.1-1.0); Monocytes % 8.1 % (1.7-9.3); Neutrophils % 71.8 % (37.0-80.0); Platelet Count 204 K/mm3 (142-424); Red Blood Count 5.93 M/mm3 (4.60-6.20); Red Cell Distribution Width 13.2 % (11.5-17.5)
[2024-02-24 15:54] LABS: Microscopic, Urine URINE MICROSCOPIC (MICROSCOPIC)
[2024-02-24 15:59] LABS: Appearance,Urine CLEAR (Clear); Bilirubin,Urine Negative (Negative); Blood, Urine TRACE-L (Negative); Color,Urine YELLOW (Yellow); Glucose,Urine (UA) Negative (Negative); Ketones,Urine Negative (Negative); Leukocyte Esterase,Urine Negative (Negative); Nitrate,Urine Negative (Negative); Protein,Urine Negative (Negative); Urobilinogen,Urine 0.2 EU/dl (0.2)
[2024-02-24 16:08] LABS: Barbiturates Screen,Urine Negative ng/ml (<200)
[2024-02-24 16:09] LABS: Amphetamine/Metha Screen,Urine Negative ng/ml (<1000); Benzodiazepines Screen,Urine Negative ng/ml (<200)
[2024-02-24 16:10] LABS: Cannabinoid Screen,Urine Negative ng/ml (<50)
[2024-02-24 16:11] LABS: Cocaine Screen,Urine Negative ng/ml (<300); Methadone Screen,Urine Negative ng/ml (<300)
[2024-02-24 16:13] LABS: Opiate Screen,Urine Negative ng/ml (<300)
[2024-02-24 16:14] LABS: Phencyclidine Screen,Urine Negative ng/ml (<25)
[2024-02-24 16:50] LABS: Bacteria,Urine 1+ /lpf; RBC,Urine Occasional #/hpf (0-3); Squamous Epithelial Cell,Urine Occasional #/hpf (0-5); WBC,Urine Occasional #/hpf (0-3)
[2024-02-24] MEDS: CLOPIDOGREL 75MG TAB 150 MG PO ×2 (17:24→18:15)
--- NOTE | 2024-02-24 20:12 | PC.NURSE ---
spoke to [facility]'s re bed assignment, the nurse will be calling us shortly, ED staff updated
--- NOTE | 2024-02-24 20:25 | PC.NURSE ---
family updated on room status
--- NOTE | 2024-02-24 21:42 | PC.NURSE ---
EMS on the way
== END 2024-02-24 22:13 | disposition short-term general hospital (02) ==
PROVIDERS: Emergency Medicine; Emergency Provider Emergency Medicine; PCP Nurse Practitioner Family
DX: I65.29 Occlusion and stenosis of unspecified carotid artery (principal); R53.1 Weakness; R20.2 Paresthesia of skin
CPT/HCPCS: 70450; 70496; 70498; 80053; 80061; 80307; 80320; 81001; 84484; 85025; 85610; 85730; 93005; 99291; G0480; Q9967

== ENCOUNTER 2024-04-10 14:38 | Outpatient (CLI) | payer MEDICARE, SELFPAY ==
--- NOTE | 2024-04-10 14:41 | MR_ITS ---
FINAL REPORT TECHNIQUE: Multiplanar and multisequence imaging of the shoulder was obtained without contrast. CLINICAL HISTORY: PAIN IN LEFT SHOULDER after stroke x 1-1.5 months ago COMPARISON: None FINDINGS: Bones and joints: There is no acute fracture, edema, or pathologic marrow replacement. The humeral head is high-riding. Acromioclavicular joint degenerative disease is present and there is osteophytosis which narrows the supraspinatus outlet. Rotator cuff: Full-thickness tears of the supraspinatus and anterior infraspinatus tendons. The most posterior infraspinatus tendon fibers are intact. The subscapularis tendon is essentially ruptured in the biceps tendon is dislocated medially. Labrum: The biceps labral complex is intact. There is a SLAP type 2 tear of the superior labrum extending posteriorly and involving nearly the entire posterior labrum. The inferior glenohumeral ligament is intact. Other: There is a joint effusion. Subdeltoid bursitis is noted. IMPRESSION: Full-thickness supraspinatus and anterior infraspinatus tendon tears. Subscapularis tendon ruptured with dislocation of the biceps tendon. Slap type 2 tear extending to include the entire posterior labrum. Degenerative changes. Reviewed, Interpreted and Dictated by Yamilka Vu MD Transcribed by Yusra John Authenticated and [facility]
== END 2024-04-10 23:59 | disposition home or self-care (01) ==
LOC: RAD 14:39
PROVIDERS: PCP Nurse Practitioner Family; Visit Provider Nurse Practitioner Family
DX: M25.512 Pain in left shoulder (principal)
CPT/HCPCS: 73221

== ENCOUNTER 2025-01-15 10:56 | Outpatient (CLI) | payer MEDICARE, SELFPAY ==
--- OUTSIDE RECORDS SUMMARY | 2024-12-03 07:00 | XMS_ITS | Encounter Summary ---
Author Organization [facility] Address [address] [place] [address] Care Team Providers Care Burr Picker Name Role Phone Mela Sellers VAN Primary Care Provider [phone] Reason for Visit * Reason Comments Procedure * Other Medical (Routine) - Closed Specialty Diagnoses / Procedures Referred By Ana mix Referred To Contact Neurology Diagnoses Paresthesia of skin Procedures EMG / Nerve Conduction Study Nile Rodriguez DO [address] [facility] [address] [place] [address] Phone: tel: fax: Referral ID Status Reason Start Date Expiration Date V isits Requested Visits Authorized [id number] Closed Specialty Services Required 06/30/2024 12/30/2025 1 1 Encounter Details Date Type Department Care Team (Late st Contact Info) Description 12/03/2024 8:00 AM EDT Procedure Visit [facility] at [facility] [address] [facility] [place] [address] Feliciano Villavicencio DO [address] [place] [address] Neuropathy of left peroneal nerve (Primary Dx); Paresthesia of skin Social History Tobacco Use Types Packs/Day Years Used Date Smoking Tobacco: Never Smokeless Tobacco: Never Tobacco Cessation:Counseling Given: Not Answered Alcohol Use Standard Drinks/Week Comments Not Currently 0 (1 standard drink = 0.6 oz pur e alcohol) Humiliation, Afraid, Rape, and Kick questionnair e Answer Date Recorded Within the last year, have y ou been afraid of your partner or ex-partner? No 02/25/2024 Within the last year, have y ou been humiliated or emotionally abused in other ways by your partner or ex-partner? No Within the last year, have y ou been kicked, hit, slapped, or otherwise physically hurt by your partner or ex-partner? No 02/25/2024 Within the last year, have y ou been raped or forced to have any kind of sexual activity by your partner or ex-partner? No 02/25/2024 PHQ-2 Answer Date Recorded Patient Health Questionnaire-2 Score 0 12/03/2024 Hunger Vital Sign Answer Date Recorded Within the past 12 months, y ou worried that your food would run out before you got the money to buy more. Never true 02/24/19 25 Within the past 12 months, t he food you bought just didn't last and you didn't have money to get more. Never true 02/25/2024 PRAPARE - Transportation Answer Date Re corded In the past 12 months, has l ack of transportation kept you from medical appointments or from getting medications? No 08/2024 In the past 12 months, has l ack of transportation kept you from meetings, work, or from getting things needed for daily living? No 02/25/2024 Housing Stability Vital Sign Answer Leonel e Recorded In the last 12 months, was t here a time when you were not able to pay the mortgage or rent on time? No 02/25/2024 In the past 12 months, how m any times have you moved where you were living? 1 02/25/2024 At any time in the past 12 m [facility], were you homeless or living in a prison (including now)? No 02/25/2024 CAGE ASSESSMENT Answer Date Recorded Cage unable to access Not on file 02/24/2024 Cage max number of drinks Not on file 2024 Cage Beverages a week Not on file 02/24/2024 Have you ever felt you should CUT down on your d rinking? 0 02/24/2024 Have you been ANNOYED by people criticizing your drinking? 0 02/24/2024 Have you felt GUILTY about your drinking? 0 02/24/2024 Have you had a drink first t adam in the morning ([employer]) to steady your nerves or to get rid of a hangover? 0 02/24/2024 CAGE Questionnaire Score 0 025 Utilities Answer Date Recorded In the past 12 months has th e electric, gas, oil, or water company threatened to shut off services in your home? No 02/25/2024 Sex and Gender Information Value Date Recorded Sex Assigned at Not on file Legal Sex Male 7:52 PM EDT Gender Identity Not on file Sexual Orientation Not on file documented as of this encounter Last Filed Vital Signs Vital Sign Reading Time Taken Comments Blood Pressure 133/77 12/03/2024 8:04 AM EDT Pulse 72 12/03/2024 8:04 AM EDT Temperature - - Respiratory Rate - - Oxygen Saturation 95% 12/03/2024 8:04 AM EDT Inhaled Oxygen Concentration - - Weight 101 kg (223 lb) 12/03/2024 8:04 AM EDT Height 182.9 cm (6') 12/03/2024 8:04 AM EDT Body Mass Index 30.24 12/03/2024 8:04 AM EDT documented in this encounter Functional Status * Over the past 2 weeks, how often have you been bothered by any of the following problems? Question Answer Date of Assessment Author Little interest or pleasure in doing things Not at all 12/03/2024 10:49 AM EDINT Jemima Heller Feeling down, depressed, or hopeless Not at all 12/03/2024 10:49 AM EDINT Jemima Heller Patient Health Questionnaire -2 Score 0 12/03/2024 10:49 AM Jemima Perez * Calculated C-SSRS Risk Score (Lifetime/Recent) Answer Date of Assessment Author No Risk Indicated 12/03/2024 10:48 AM EDINT Shine Heller * How difficult have these problems made it for you to do your work, take care of things at home, or get along with other people? Answer Date of Assessment Author Not difficult at all 12/03/2024 10:49 AM EDT Shine Ayala * Question Answer Date of Assessment Author 1. Wish to be (Past 1 Month) No 025 10:48 AM EDT Shine Heller 2. Non-Specific Active Suici tata Thoughts (Past 1 Month) No 12/03/2024 10:48 AM EDT Damián Heller 6. Suicidal Behavior (Lifetime) No 10:48 AM EDT Shine Heller documented as of this encounter Miscellaneous Notes * Progress Notes - Feliciano Villavicencio DO - 12/03/2024 8:00 AM EDTAssociated Order(s): EMG / Nerve Conduction Study Post-Procedure Diagnose(s): Paresthesia of skin Images from the original note were not included. Patient ID: Carmelo Batres is a 74 y.o. male. Encounter Diagnoses Name Primary? Neuropathy of left peroneal nerve Yes Paresthesia of skin EMG / Nerve Conduction Study Date/Time: 12/03/2024 8:00 AM Performed by: Feliciano Villavicencio DO Authorized by: Nile Rodriguez DO [facility] Department of Physical [place] [address] Test Date: 12/02/2024 Patient: Carmelo Batres : 1950 Physician: Feliciano Villavicencio DO Sex: Male Height: 5' 11 Ref Phys: Nile Rodriguez DO ID#: [id number] Weight: 225 lbs. Resident: Samson Bernard DO Patient Complaints: LLE paresthesia Medications: Taking aspirin 325mg. Please see EMR for full medication list. Patient History / Exam: Carmelo Batres is a 74 y.o. 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 Patient denied history of vitamin deficiencies, EtOH or tobacco use. Reported history of DM and hypothyroidism. Additionally reported history of bladder cancer w/o chemotherapy/radiation. Reported history of paresthesia at the bottom of theleft foot since CVA, currently taking gabapentin with minimal improvement of symptoms. Motor Exam: Lower extremity exam: Inspection: no gross atrophy throughout Sensation: SILT bilateral saphenous/SP/DP/sural. Mild hypoesthesia in the left medial and lateral plantar nerves compared to right. Strength: 5/5 bilateral hip flexion (L2), knee extension (L3), ankle dorsiflexion (L4), EHL (L5), ankle plantarflexion (S1), ankle inversion/eversion Reflexes: 2+/4 bilateral patella (L4), 2+/4 bilateral posterior tibialis (L5), and 2+/4 bilateral Achilles (S1) Negative Babinski bilaterally No clonus appreciated NCS & EMG Findings: The left peroneal motor study revealed normal onset latency, normal amplitudes, normal conduction velocity (B Fib-Ankle), and decreased conduction velocity (Poplt-B Fib). The left tibial motor study revealed normal onset latency, normal amplitudes, and normal conductionvelocity (Knee-Ankle). The left superficial peroneal sensory study revealed normal peak latency and reduced amplitude. The left sural sensory study revealed normal peak latency and normal amplitude. Concentric EMG evaluation of the left tibialis anterior, left medial gastrocnemius, and vastus medialis muscles revealed normal insertional activity, no abnormal spontaneous activity and the voluntary MUAPs were within normal parameters. I was present for the entire procedure, interpretation of the results and completion of the report.Physicians performed all the NCS. Dr. Bernard performed the procedure Impression: Electrodiagnostic evidence of a left superficial peroneal nerve neuropathy, however this does not correlate to the patient's clinical history or physical exam findings. Electrodiagnostic evidence of a left peroneal nerve entrapment neuropathy at the level of the fibular head, likely contributing to the superficial peroneal nerve neuropathy as above. No electrodiagnostic evidence of a bilateral L2-S2 motor radiculopathy in the muscles and nerves tested. Samson Bernard, DO Feliciano Villavicencio, DO Nerve Conduction Studies Anti Sensory Summary Table Stim Site NR Peak (ms) Norm Peak (ms) P-T Amp (??V) Norm P-T Amp Site1 Site2 Delta-P (ms) Dist (cm)Avery (m/s) Norm Avery (m/s) NCV Left Sup Peron Anti Sensory (Ant Lat Mall) 31.9 ??C 14 cm 3.0 <4.0 3.5 >10 14 cm Ant Lat Mall 3.0 12.0 40 NCV Left Sural Anti Sensory (Lat Mall) 31.8 ??C Calf 3.6 <4.3 11.1 >10 Calf Lat Mall 3.6 14.0 39 Motor Summary Table Stim Site NR Onset (ms) Norm Onset (ms) O-P Amp (mV) Norm O-P Amp Site1 Site2 Delta-0 (ms) Dist (cm) Avery (m/s) Norm Avery (m/s) NCV Left Peroneal Motor (Ext Dig Brev) 30.5 ??C Ankle 5.7 <6.2 4.1 >2.0 B Fib Ankle 7.3 30.0 41 >40 B Fib 13.0 4.0 Poplt B Fib 2.6 10.0 38 >40 Poplt 15.6 5.1 NCV Left Tibial Motor (Abd Green Brev) 34 ??C Ankle 5.4 <6.2 5.4 >5.0 Knee Ankle 9.5 40.0 42 >40 Knee 14.9 4.6 EMG Side Muscle Nerve Root Ins Act Fibs Psw Other Amp Dur Poly Recrt Comment Left AntTibialis Dp Br Peron L4-5 Nml 0 0 Nml Nml 0 Nml Left MedGastroc Tibial S1-2 Nml 0 0 Nml Nml 0 Nml Left VastusMed Femoral L2-4 Nml 0 0 Nml Nml 0 Nml Waveforms: documented in this encounter Plan of Treatment Upcoming Encounters Date Type Department Care Team (Late st Contact Info) Description 02/22/2025 11:00 AM EST Office Visit [facility] [address] [place] [address] Feliciano Villavicencio DO [address] [place] [address] 03/15/2025 10:00 AM EST Appointment [facility] [address] [place] [address] 03/15/2025 12:40 PM EST Office Visit [place] [facility] [address] [place] [address] Annette Hill, PA [address] [place] [address] 06/03/2025 12:30 PM EDT Office Visit [facility] at [facility] [address] [address] Nile Rodriguez DO [address] [place] [address] documented as of this encounter Procedures Procedure Name Priority Date/Time Associated Diagnosis Comments EMG / NERVE CONDUCTION STUDY Routine 12/03/2024 8:00 AM EDT Paresthesia of skin documented in this encounter Results * EMG / Nerve Conduction Study (12/03/2024 8:00 AM EDT) Anatomical Region Laterality Modality Other Narrative 12/03/2024 8:00 AM EDT Feliciano Villavicencio DO 12/09/2024 12:52 PM EMG / Nerve Conduction Study Date/Time: 12/03/2024 8:00 AM Performed by: Feliciano Villavicencio DO Authorized by: Nile Rodriguez DO Nile Rodriguez DO NEUROLOGY ORDERABLES Final Result documented in this encounter Visit Diagnoses Diagnosis Neuropathy of left peroneal nerve- Primary Paresthesia of skin documented in this encounter Additional Health Concerns Assessment Noted Time A fall risk assessment has been complete d for the patient 12/03/2024 10:49 AM EDT A Body Mass Index follow-up plan has been documented for the patient 12/03/2024 5:08 PM EDT documented as of this encounter Care Teams Burr Picker Relationship Specialty Start Date End Date Mela Sellers APRN [address] [place] [address] PCP - General 02/25/24 documented as of this encounter
--- OUTSIDE RECORDS SUMMARY | 2024-12-03 10:00 | XMS_ITS | Encounter Summary ---
Author Organization Address [address] [place] [address] Care Team Providers Care Passenger Rate Clerk Name Role Phone Mela Sellers VAN Primary Care Provider [phone] Reason for Referral * Other Medical (Routine) - Closed Specialty Diagnoses / Procedures Referred By Contact Referred To Contact Physical Medicine and Rehabilitation Diagnoses Paresthesia of skin Nerve entrapment Procedures Injection - Nerve Block Nile Rodriguez DO [address] [address] Phone: tel: fax: Referral ID Status Reason Start Date Expiration Date Visits Re quested Visits Authorized [id number] Closed 12/03/2024 06/04/2026 1 1 Reason for Visit * Reason Comments Follow-up Encounter Details Date Type Department Care Team (Late st Contact Info) Description 12/03/2024 11:00 AM EDT Office Visit [facility] [address] [facility] [place] [address] Nile Rodriguez DO [address] [address] Paresthesia of skin (Primary Dx); Nerve entrapment; History of bladder cancer; Anxiety; Chronic left shoulder pain Social History Tobacco Use Types Packs/Day Years Used Date Smoking Tobacco: Never Smokeless Tobacco: Never Alcohol Use Standard Drinks/Week Comments Not Currently [...] time in the past 12 m [facility], were you homeless or living in a half-way (including now)? No 02/25/2024 CAGE ASSESSMENT Answer [...] drink first t adam in the morning (EYE-PRESS BREAKER) to steady your nerves or to get rid of a hangover? 0 02/24/2024 CAGE Questionnaire Score 0 025 Utilities Answer Date Recorded In the past 12 months has [employer], gas, oil, or water [employer] threatened to shut off services in your home? No 02/25/2024 Sex and Gender Information Value Date Recorded Sex Assigned at Not on file Legal Sex Male 7:52 PM EDT Gender Identity Not on file Sexual Orientation Not on file documented as of this encounter Last Filed Vital Signs Vital Sign Reading Time Taken Comments Blood Pressure 124/78 12/03/2024 10:44 AM EDT Pulse 60 12/03/2024 10:44 AM EDT Temperature - - Respiratory Rate - - Oxygen Saturation 97% 12/03/2024 10:44 AM EDT Inhaled Oxygen Concentration - - Weight 101 kg (223 lb 5.2 oz) 12/03/2024 10:44 A M EDT Height 180.3 cm (5' 11 ) 12/03/2024 10:44 AM EDT Body Mass Index 31.15 12/03/2024 10:44 AM EDT documented in this encounter Functional Status * Over the past 2 weeks, how often have you been bothered by any of the following problems? Question Answer Date of Assessment Author Little interest or pleasure in doing things Not at all 12/03/2024 10:49 AM EDINT Jemima Heller Feeling down, depressed, or hopeless Not at all 12/03/2024 10:49 AM EDT Jemima Heller Patient Health Questionnaire -2 Score 0 12/03/2024 10:49 AM EDT Jemima Heller * Calculated C-SSRS Risk Score (Lifetime/Recent) Answer Date of Assessment Author No Risk Indicated 12/03/2024 10:48 AM EDT Shine Heller * How difficult have these problems made it for you to do your work, take care of things at home, or get along with other people? Answer Date of Assessment Author Not difficult at all 12/03/2024 10:49 AM EDT Shine Ayala * Question Answer Date of Assessment Author 1. Wish to be (Past 1 Month) No 025 10:48 AM Shine Perez 2. Non-Specific Active Suici tata Thoughts (Past 1 Month) No 12/03/2024 10:48 AM Damián Perez 6. Suicidal Behavior (Lifetime) No 10:48 AM Shine Perez documented as of this encounter Miscellaneous Notes * Progress Notes - Nile Rodriguez DO - 12/03/2024 11:00 AM EDT Images from the original note were not included. 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 The patient was last seen in clinic on 06/30/2024 at which time we ordered a EDX of the LLE 2/2 LLE numbness and increased his gabapentin to 300mg at bedtime. Since being seen, he would see NSGY on 09/08 who recommended D/C of plavix and continued ASA 325mg daily. He would have a EDX today with Dr. Villavicencio and in discussion with him personally, the patient would have slowing of the fibular nerve along the fibular head. Interval History: History of Present Illness Patient seen today with his . He reports he was diagnosed with a recurrence of bladder cancer in 09/2024, discovered during an annual cystoscopy. Prior to this, he had experienced hematuria on a few occasions, which was initially attributed to dehydration or a urinary tract infection. His urologist plans to reassess the condition in 02/2025, with potential treatment options including removal or scraping of the tumor. He reports a sensation of internal shakiness, which he wonders if it could be medication related. This symptom has been present since his stroke. Additionally, he experiences a fidgety sensation in his legs, which has improved with gabapentin. However, he discontinued gabapentin a week ago due to dizziness and lightheadedness upon waking after increasing the dose. He reports no worsening of his leg symptoms over the past week but notes persistent restlessness that is worsened since being off the gabapentin. He does not feel more nervous after drinking coffee in the morning. He is unsure if gabapentin 100 mg caused dizziness, but did appreciate it after increasing the dose. He is not currently in any therapy and reports no swallowing or speech issues. He reports to a history of leg cramps that have been attributed to dehydration, particularly duringhot weather and physical activity such as hay work. He has not experienced any leg cramps for several weeks and has increased his fluid intake, including daily Gatorade. He continues to experience a tingling sensation in his leg, which is more pronounced in the lower part of his leg. He also reports a tingling sensation on the left side of his back, which is more noticeable when he sits against something. He reports this sensation is more pronounced on the lower leg and top of the foot. Occupational therapy was discontinued due to a hx of 5 rotator cuff tears in his left shoulder. 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 He received a shoulder injection in 06/2024. He was advised that surgery would not be possible while he was on Plavix, but now that this has been discontinued, he plans to have shoulder surgery at the beginning of next year. He is unsure if gabapentin helped with his shoulder soreness. He reports that he continues to be unable to sleep as the numbness in his foot bothers him and keeps him up. Details of past medical history, surgical history, family history, and social history reviewed in the medical record. Allergies: Allergies[1] Medications: Current Medications[2] ROS: 14 point ROS negative except for above. Physical Examination: 04/07/2024 3:34 PM 06/04/2024 3:27 PM 06/04/2024 3:42 PM 06/09/2024 3:06 PM 06/30/2024 11:39 AM 09/08/2024 2:08 PM 12/03/2024 8:04 AM Vitals Systolic 130 166 144 134 140 133 Diastolic 82 88 84 82 83 77 Heart Rate 61 68 61 72 Resp 16 Height (cm) 182.9 cm 182.9 cm 182.9 cm 182.9 cm 182.9 cm Weight (kg) 102 kg 102.5 kg 103.2 kg 102.967 kg 104.6 kg 101.152 kg BMI 30.5 kg/m2 30.65 kg/m2 30.86 kg/m2 30.79 kg/m2 31.28 kg/m2 30.24 kg/m2 BSA (m2) 2.28 m2 2.29 m2 2.29 m2 2.29 m2 2.31 m2 2.27 m2 Visit Report Report Report Report Report Report Report General Apperance: Awake, well groomed, in no acute distress, VS reviewed and appropriate Ear, Nose, Mouth and Throat: Atraumatic, normocephalic, moist oral mucosa, no pallor Eyes: Normal conjunctivae, no icterus. Respiratory: No use of accessory muscles during breathing. Symmetric chest wall rise Cardiovascular: No edema bilaterally Gastrointestinal: Soft, non-tender, non-distended Skin: No evidence of rash on areas of exposed skin Heme/lymph/immune: no bruising, no lymphadenopathy Musculoskeletal: There is no obvious kyphosis or scoliosis. Non tender to palpation throughout. (+)Tinels over the fibular nerve at the fibular head on the left ROM intact throughout LUE SAbd EF EE WE FF Fabd 4+/5 5/5 4+/5 5/5 4/5 4/5 RUE SAbd EF EE WE FF Fabd 5/5 5/5 5/5 5/5 5/5 5/5 LLE HF KE KF APF ADF 5/5 5/5 5/5 5/5 5/5 RLE HF KE KF APF ADF 5/5 5/5 5/5 5/5 5/5 Neurological: - Awake and alert, AOx4, participating in conversation - CN II-XII grossly intact - Spasticity: None appreciated - Speech: fluent without appreciable aphasia or dysarthria Data: - Reviewed last clinic note, NSGY note and discussed EDX results with Dr. Villavicencio Assessment: Carmelo Batres is a 74 y.o. 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 - Injection - Nerve Block; Future Nerve entrapment - Injection - Nerve Block; Future History of bladder cancer Anxiety Chronic left shoulder pain Assessment & Plan 1. LLE paresthesias: - Symptoms somewhat align with the findings from the nerve study, which revealed a slight deceleration in nerve conduction around the fibular head and patient reported to me of numbness over the top of the foot. - We discussed possibly performing a nerve block vs hydrodissection with Dr. Villavicencio. Discussed thatthis would hopefully result in improved paresthesias and since this is keeping him up at night, he wants to try the procedure. - A prescription for gabapentin 200 mg, to be taken as two 100 mg capsules at night, was provided. The 300mg at bedtime caused morning dizziness and the 100mg did not provide enough relieve thus willattempt to split the difference. - Nerve block order placed, pending insurance approval. 2. Bladder cancer: - Diagnosed in 09/2024 following a cystoscopy. History of bladder cancer since 2012 with annual checkups. - The plan is to monitor the condition until 02/2025, at which point another cystoscopy will be performed to assess any changes. If necessary, a procedure to remove or scrape the tumor will be considered. - All care being managed by Urologist. 3. Anxiety: - Reports feeling nervous and shaky, described as a butterflies feeling inside. This sensation has been present since the stroke. - The potential impact of gabapentin on these symptoms was discussed. It was noted that the patient's nervousness might improve with the reintroduction of gabapentin at 200 mg nightly. 4. Left shoulder pain - Has five tears in the shoulder and has been advised to wait at least a year post-stroke before considering surgery. - Received a shoulder injection in 06/2024, which provided some relief. Currently off Plavix and plans to revisit the possibility of shoulder surgery at the beginning of next year. RTC: Next available with Dr. Villavicencio, [address] Rodriguez Electronically Signed by: Nile Rodriguez DO Verbal consent was obtained to use ambient listening technology to assist in the documentation of the encounter: yes Time spent caring for the patient on today's visit including review of patient chart prior to entering the patient care room, [id number] time with the patient for complaints, history and examination, discussing care options, preparing medication prescriptions and planning next follow-up was 50 minutes total. [1] Allergies Allergen Reactions Latex Other - please document in the comment field Statins Other - please document in the comment field transaminitis [2] Current Outpatient Medications: aspirin 325 MG tablet, Take 1 tablet (325 mg) by mouth 1 (one) time each day., Disp: , Rfl: atorvastatin (Lipitor) 20 MG tablet, Take 1 tablet by mouth daily., Disp: , Rfl: gabapentin (Neurontin) 300 MG capsule, TAKE 1 CAPSULE BY MOUTH NIGHTLY (Patient not taking: Reported on 12/03/2024), Disp: 30 capsule, Rfl: 0 hydrocortisone 1 % cream, , Disp: , Rfl: lisinopril 10 MG tablet, Take by mouth daily., Disp: , Rfl: loratadine (Claritin) 10 MG tablet, Take 1 tablet (10 mg) by mouth daily., Disp: , Rfl: omega-3 (Fish Oil) 1000 MG capsule, Take 1 capsule (1,000 mg) by mouth daily., Disp: , Rfl: pantoprazole (Protonix) 40 MG EC tablet, Take 1 tablet (40 mg) by mouth 1 (one) time each day. Do not crush, chew, or split., Disp: , Rfl: documented in this encounter Plan of Treatment Upcoming Encounters Date Type Department Care Team (Late st Contact Info) Description 02/22/2025 11:00 AM EST Office Visit [facility] [address] [place] [address] Feliciano Villavicencio DO [address] [place] [address] 03/15/2025 10:00 AM EST Appointment [facility] [address] [place] [address] 03/15/2025 12:40 PM EST [facility] Visit [facility] [address] [place] [id number] Annette Hill, JOSE [address] [place] [address] 06/03/2025 12:30 PM EDT Office [facility] [address] [place] [address] Nile Rodriguez DO [address] [place] [address] Scheduled Orders Name Type Priority Associated Diagnoses Orde r Schedule Injection - Nerve Block Procedures Routine Paresthesia of skin Nerve entrapment Expected: 12/03/2024 (Approximate), Expires: 06/06/2026 documented as of this encounter Visit Diagnoses Diagnosis Paresthesia of skin- Primary Nerve entrapment Mononeuritis of unspecified site History of bladder cancer Personal history of malignant neoplasm of bladder Anxiety Anxiety state, unspecified Chronic left shoulder pain Pain in joint, shoulder region documented in this encounter Additional Health Concerns Assessment Noted Time A fall risk assessment has been complete d for the patient 12/03/2024 10:49 AM EDT A Body Mass Index follow-up plan has been documented for the patient 12/03/2024 5:08 PM EDT documented as of this encounter Care Teams Passenger Rate Clerk Relationship Specialty Start Date End Date Mela Sellers APRN [address] [place] [id number] PCP - General 02/25/24 documented as of this encounter
--- OUTSIDE RECORDS SUMMARY | 2024-12-21 08:00 | XMS_ITS | Encounter Summary ---
Author Organization [facility] Address [address] [place] [address] Care Team Providers Care Software Architect Name Role Phone Mela Sellers VAN Primary Care Provider [phone]- [phone] Reason for Visit * Other Medical (Routine) - Closed Specialty Diagnoses / Procedures Referred By Contact Referred To Contact Physical Medicine and Rehabilitation Diagnoses Paresthesia of skin Nerve entrapment Procedures Injection - Nerve Block Nile Rodriguez DO [address] [facility] [address] [place] [address] Phone: tel: fax: Referral ID Status Reason Start Date Expiration Date Visits Re quested Visits Authorized [id number] Closed 12/03/2024 06/04/2026 1 1 Encounter Details Date Type Department Care Team (Late st Contact Info) Description 12/21/2024 8:00 AM EST Procedure Visit [facility] at [facility] [address] [facility] [place] [address] Feliciano Villavicencio DO [address] [place] [address] Nerve entrapment (Primary Dx); Paresthesia of skin Social History [...] any time in the past 12 m [facility], were you homeless or living in a alf (including now)? No 02/25/2024 CAGE ASSESSMENT Answer [...] drink first t adam in the morning (EYE-LINING CASER) to steady your nerves or to get rid of a hangover? 0 02/24/2024 CAGE Questionnaire Score 0 025 Utilities Answer Date Recorded In the past 12 months has e electric, gas, oil, or water company threatened to shut off services in your home? No 02/25/2024 Sex and Gender Information Value Date Recorded Sex Assigned at Not on file Legal Sex Male 7:52 PM EDT Gender Identity Not on file Sexual Orientation Not on file documented as of this encounter Last Filed Vital Signs Vital Sign Reading Time Taken Comments Blood Pressure 125/74 12/21/2024 8:07 AM EST Pulse 70 12/21/2024 8:07 AM EST Temperature - - Respiratory Rate - - Oxygen Saturation 96% 12/21/2024 8:07 AM EST Inhaled Oxygen Concentration - - Weight - - Height - - Body Mass Index - - documented in this encounter Miscellaneous Notes * Progress Notes - Feliciano Villavicencio DO - 12/21/2024 8:00 AM EST Physical Medicine and Rehabilitation Outpatient Follow Up Visit Chief Complaint: left common peroneal nerve entrapment Background History: Carmelo Batres is a 74 y.o. 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 Patient denied history of vitamin deficiencies, EtOH or tobacco use. Reported history of DM and hypothyroidism. Additionally reported history of bladder cancer w/o chemotherapy/radiation. Reported history of paresthesia at the bottom of the left foot since CVA, currently taking gabapentin with minimal improvement of symptoms. Risks and benefits discussed with patient. Patient elected to proceed with nerve block. Details of past medical history, surgical history, family history, and social history reviewed in the medical record. Allergies: Allergies[1] Medications: Current Medications[2] The following portions of the chart were reviewed this encounter and updated as appropriate: Tobacco Allergies Meds Problems Med Hx Surg Hx Fam Hx ROS: 14 point ROS negative except for above. Physical Examination: Visit Vitals BP 125/74 Pulse 70 SpO2 96% Some recent data might be hidden Constitutional: Well-developed, no acute distress and well nourished. Psychiatric: Follows commands and alert Eyes: EOMI and anicteric. NCAT. Neck: supple, trachea midline Respiratory: Normal effort and normal rate. Cardiovascular: No edema and no clubbing. Skin: Warm, dry and intact, no cyanosis Neurologic: Speech is fluent, muscle tone normal. MSK: Gait intact. Range of motion was within functional limits Special Tests: EMG/NCS 12/03/24 : Impression: Electrodiagnostic evidence of a left superficial [...] radiculopathy in the muscles and nerves tested. DATA: XRAY No results found for this or any previous visit. MRI === 02/24/24 === MR HEAD WO IV CONTRAST - Narrative - CLINICAL INDICATION: Neuro deficit, acute, stroke suspected TECHNIQUE: Multiplanar multiecho sequences were performed through the brain utilizing T1 and T2 weighting, as well as either axial susceptibility weighted or gradient echo sequences, and axial diffusion weighted images. Imaging was performed without contrast administration. COMPARISON: CT exam dated February 29, 2024 0849 hours. FINDINGS: Diagnostic Quality: Adequate. The ventricles and sulci are normal in size. Multiple small foci of T2 hyperintense signal and restricted diffusion are present in the superficial and deep watershed zone of the right MCA/KEISHA and MCA/CANCER REGISTRY MANAGER. There are also similar punctate lesionsin bilateral CANCER REGISTRY MANAGER territories. There is also chronic cortical infarct in the anterior right frontal. A few other scattered T2/FLAIR hyperintense lesions within subcortical, deep and periventricular white matter. Minimal susceptibility of the margins of the chronic infarct in the right frontal lobe. Vascular Flow Voids: Normal. Paranasal Sinuses and Mastoid Air Cells: Mild circumferential mucosal thickening in visualized paranasal sinuses. Mastoid air cells are clear. Orbits: No definite masses within the limitations of the study. Extracranial Findings: None. Craniocervical Junction and Skull Base: No tonsillar ectopia or mass is present. - Impression - Multiple small foci of restricted diffusion in the superficial and deep watershed zones of the right MCA/KEISHA and MCA/CANCER REGISTRY MANAGER. These findings are consistent with acute small vessel infarcts in the border zones, likely due to hypoperfusion. Differential includes acute embolic infarcts. Probable additional embolic infarcts in bilateral CANCER REGISTRY MANAGER territories. Chronic cortical infarct in the anterior right frontal lobe. RECOMMENDATIONS: Clinical correlation: Correlate the imaging findings with the patient's clinical presentation and neurological examination. The new left upper extremity weakness and sensory changes in the left face,arm, and leg are consistent with the right hemispheric watershed infarcts. Cardiac evaluation: Consider a cardiac evaluation to assess for any potential sources of emboli, such as atrial fibrillation or valvular disease. Monitoring for neurological deterioration: Closely monitor the patient for any signs of neurological deterioration, which may indicate further hypoperfusion or new infarcts. CRITICAL RESULT: Yes. COMMUNICATION: The critical findings were discussed via secure chat with FÁTIMA PEREZ on 02/29/2024 2:07 PM by Frandy Velasquez MD with acknowledgment of the results . Drafted by Frandy Velasquez MD on 02/29/2024 1:58 PM Final report signed by Frandy Velasquez MD on 02/29/2024 2:08 PM Procedure(s) performed today: Procedure Performed by: Feliciano Villavicencio, DO The patient was examined and informed of the risks, benefits, and alternative options. The patient signed the informed consent form. A time out was performed to verify the correct patient identity, site, and procedure. In lateral recumbent position, the left Knee was exposed, with ultrasound guidance the Common Peroneal Nerve was identified, evaluated for area of compression, marked, and prepped with chloraprep. The area was also evaluated for and identified associated vasculature with color doppler applied to det ermine flow of vessels. Under aseptic conditions, a 25 gauge 1.5 inch needle was advanced into the space around the Common Peroneal Nerve with ultrasound guidance, followed by an injection of 1mL 1% Lidocaine, and 9 mL of 5% dextrose after negative aspiration. The needle removed from the injection site thereafter. A bandage was applied. The patient tolerated the procedure well with no complications. Patient recommended to: 1. Keep the injection site clean and dry. 2. Continue current medications. 3. Ice injection site 10-15 minutes 2-3 times in the first 24 hours. 4. Avoid excessive activities. Relative rest. Assessment: Carmelo Batres is a 74 y.o. male with a This is a/an Chronic Progressing problem Problem List Items Addressed This Visit Nerve entrapment - Primary Paresthesia of skin Plan: Procedure performed as outlined above. Will have the patient to return in 8 weeks for reassessment. Follow up in about 8 weeks (around 02/15/2025) for f/u after common peroneal n. block. [1] Allergies Allergen Reactions Latex Other - please document in the comment field Statins Other - please document in the comment field transaminitis [2] Current Outpatient Medications: aspirin (Ecotrin) 325 MG EC tablet, Take 1 tablet by mouth daily., Disp: , Rfl: atorvastatin (Lipitor) 20 MG tablet, Take 1 tablet by mouth daily., Disp: , Rfl: gabapentin (Neurontin) 100 MG capsule, Take 2 capsules by mouth nightly., Disp: 60 capsule, Rfl: 3 hydrocortisone 1 % cream, , Disp: , Rfl: lisinopril 10 MG tablet, Take by mouth daily., Disp: , Rfl: loratadine (Claritin) 10 MG tablet, Take 1 tablet (10 mg) by mouth daily., Disp: , Rfl: [place]-3 Fatty Acids (Fish Oil) 1000 MG capsule delayed-release, Take 1 capsule by mouth daily., Disp: , Rfl: pantoprazole (Protonix) 40 MG EC tablet, Take 1 tablet (40 mg) by mouth 1 (one) time each day. Do not crush, chew, or split., Disp: , Rfl: triamcinolone (Kenalog) 0.1 % cream, Apply 1 Application topically as needed for rash or irritation., Disp: , Rfl: aspirin 325 MG tablet, Take 1 tablet (325 mg) by mouth 1 (one) time each day. (Patient not taking: Reported on 12/21/2024), Disp: , Rfl: omega-3 (Fish Oil) 1000 MG capsule, Take 1 capsule (1,000 mg) by mouth daily. (Patient not taking: Reported on 12/21/2024), Disp: , Rfl: documented in this encounter Plan of Treatment Upcoming Encounters Date Type Department Care Team (Late st Contact Info) Description 02/22/2025 11:00 AM EST Office Visit [facility] at [facility] [address] [place] [address] Feliciano Villavicencio DO [address] [place] [address] 03/15/2025 10:00 AM EST Appointment [facility] [address] [address] 03/15/2025 12:40 PM EST [facility] [address] [place] [address] Annette Hill PA [address] [place] [address] 06/03/2025 12:30 PM EDT Office Visit [facility] [address] [place] [address] Nile Rodriguez DO [address] [facility] [address] [place] [address] documented as of this encounter Visit Diagnoses Diagnosis Nerve entrapment- Primary Mononeuritis of unspecified site Paresthesia of skin documented in this encounter Administered Medications Inactive Administered Medications - up to 3 most recent administrations Medication Order MAR Action Action Date Dose Rate Site dextrose 50 % solution 1 mL 1 mL, Perineural, Once, 1 dose, On Sat12/21/24 at 0930, RoutineIndications:Paresthesia of skin,Nerve entrapment Given 12/21/2024 9:02 AM EST 1 mL lidocaine (Xylocaine) 1 % injection 1 mL 1 mL, Injection, Once, 1 dose, On Sat12/21/24 at 0930, RoutineIndications:Paresthesia of skin,Nerve entrapment Given 12/21/2024 9:00 AM EST 1 mL documented in this encounter Additional Health Concerns Assessment Noted Time A fall risk assessment has been complete d for the patient 12/21/2024 8:03 AM EST A Body Mass Index follow-up plan has been documented for the patient 12/29/2024 8:37 AM EST documented as of this encounter Care Teams Software Architect Relationship Specialty Start Date End Date Mela Sellers APRN [address] [place] [id number] PCP - General 02/25/24 documented as of this encounter
[2025-01-15 20:07] LABS: Coronavirus 19, PCR Not Detected (NotDetected); Influenza A, PCR Not Detected (NotDetected); Influenza B, PCR Not Detected (NotDetected)
--- OUTSIDE RECORDS SUMMARY | 2025-01-18 11:43 | XMS_ITS | Clinical Summary ---
Author Organization [facility] Address [address] [place] [address] Care Team Providers Care Manager Sign Name Role Phone Mela Sellers APRN Primary Care Provider [phone]- [phone] Allergies Active Allergy Reactions Criticality Noted Date Comments Latex Other - please docum ent in the comment field Low 04/07/2024 Statins Other - please docum ent in the comment field Low 02/25/2024 transaminitis Medications loratadine (Claritin) 10 MG tablet Take 1 tablet (10 mg) by mouth daily. Active omega-3 (Fish Oil) 1000 MG capsule Take 1 capsule (1,000 mg) by mouth daily. Active aspirin 325 MG tablet Take 1 tablet (325 mg) by mouth 1 (one) time each day. 5 Active Additional Information Patient not taking.Reported on 12/21/2024 pantoprazole (Protonix) 40 MG EC tablet Take 1 tablet (40 mg) by mouth 1 (one) time each day. Do not crush, chew, or split. 5 Active lisinopril 10 MG tablet Take by mouth daily. Active hydrocortisone 1 % cream Active atorvastatin (Lipitor) 20 MG tablet Take 1 tablet by mouth daily. Active aspirin (Ecotrin) 325 MG EC tablet Take 1 tablet by mouth daily. 5 Active triamcinolone (Kenalog) 0.1 % cream Apply 1 Application topically as needed for rash or irritation. Active [place]-3 Fatty Acids (Fish Oil) 1000 MG capsule delayed-release Take 1 capsule by mouth daily. 5 Active gabapentin (Neurontin) 100 MG capsuleIndicati ons:Paresthesia of skin Take 2 capsules by mouth nightly. 60 capsule 3 Active Hospital, Clinic, or Other Facility Administered Medication Ordered Dose Route Frequency Start Date End Date Status lidocaine (Xylocaine) 1 % injection 1 mLIndications:Paresthe daniela of skin,Nerve entrapment 1 mL IJ Once 12/21/2024 12/21/2024 Ended dextrose 50 % solution 1 mLIndications:Paresthe daniela of skin,Nerve entrapment 1 mL perineural Once 12/21/2024 12/21/2024 Ended Active Problems Problem Noted Date Diagnosed Date Nerve entrapment 12/29/2024 Paresthesia of skin 12/29/2024 Neuropathy of left peroneal nerve 12/09/2024 Presence of internal carotid stent 02/29/2024 Class 1 obesity with body ma ss index (BMI) of 32.0 to 32.9 in adult 02/28/2024 Overview (02/28/2024): Complicates all aspects of care. 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 02/25/2024 Overview (02/28/2024): Due to stroke PT/OT consulted Mixed hyperlipidemia 02/25/2024 Overview (02/28/2024): Continue statin per neurology Statin intolerance 02/25/2024 Overview (02/28/2024): HX of elevated LFTs Monitor while on statin Internal carotid artery stenosis, right 02/24/19 Overview (02/29/2024): Blood pressure goals for SBP < 140 and to avoid hypotension S/p angiogram and YIFAN stent 02/28/2024 Continue DAPT & statin (monitor for known history of elevated LFTS) Cerebrovascular accident (CV A) due to embolism of right carotid artery 02/25/2024 Overview (02/29/2024): Acute right frontoparietal ischemic infarct Right ICA atherosclerosis and stenosis Presented after developing left side weakness and numbness with an initial NIHSS of 1. Last known normal: 0730 on 02/24/24 tNK not given as he presented outside treatment window Thrombectomy not performed given no LVO on imaging Stroke mechanism is large vessel atherosclerosis of the right ICA Stroke labs include TSH 3.25, A1c 6.1, LDL 132 CTH without contrast: No acute IC abnormality CTA H/N: YIFAN stenosis MR head showed an acute infarct within the right frontoparietal region involving the precentral and postcentral gyri. Signal suggesting a small chronic infarct in the superior right frontal lobe although other chronic insults are not excluded. Transthoracic ECHO showed an EF of 60 to 70%, no LV mass or thrombus, LA not well visualized. Blood pressure goals for SBP < 150 and to avoid hypotension S/p angiogram and YIFAN stent 02/28/202402/28: New and progressive left sided weakness, concerns for hyperperfusion syndrome Continue DAPT & statin (monitor for known history of elevated LFTS) Impaired functional mobility and activity tolera nce 02/25/2024 Overview (02/28/2024): PT/OT consulted History of bladder cancer 02/25/2024 Encounters Date Type Department Care Team Description 12/21/2024 8:00 AM EST Procedure Visit [facility] at [facility] [address] [place] [address] Feliciano Villavicencio DO Nerve entrapment (Primary Dx); Paresthesia of skin 12/21/2024 Orders Only External Location [address] [place] [address] Provider, External 12/21/2024 Travel 12/04/2024 Telephone [facility] [address] [place] [address] Feliciano Villavicencio DO 12/03/2024 11:00 AM EDT Office Visit [facility] [address] [place] [address] Nile Rodriguez DO Paresthesia of skin (Primary Dx); Nerve entrapment; History of bladder cancer; Anxiety; Chronic left shoulder pain 12/03/2024 8:00 AM EDT Procedure Visit [facility] [address] [place] [address] Feliciano Villavicencio, Neuropathy of left peroneal nerve (Primary Dx); Paresthesia of skin 12/03/2024 Travel from Last 3 Months Immunizations Immunization Administration Dates Next Due Influenza, High-dose, Split Virus, Trivalent, Injectable, preservative free 11/05/2024,12/19/2023,01/09/2020 Pneumococcal Polysaccharide PPV23 06/30/2021 Tdap 12/19/2023 Social History Tobacco Use Types Packs/Day Years [...] were you homeless or living in a senior care (including now)? No 02/25/2024 CAGE ASSESSMENT Answer [...] drink first t adam in the morning (EYE-WHEAT INSPECTOR) to steady your nerves or to get [...] on file Sexual Orientation Not on file Last Filed Vital Signs Vital Sign Reading Time Taken Comments Blood Pressure 125/74 12/21/2024 8:07 AM EST Pulse 70 12/21/2024 8:07 AM EST Temperature 37 C (98.6 F) 03/02/2024 12:00 PM EST Respiratory Rate 16 06/04/2024 3:27 PM EDT Oxygen Saturation 96% 12/21/2024 8:07 AM EST Inhaled Oxygen Concentration - - Weight 101 kg (223 lb 5.2 oz) 12/03/2024 10:44 A M EDT Height 180.3 cm (5' 11 ) 12/03/2024 10:44 AM EDT Body Mass Index 31.15 12/03/2024 10:44 AM EDT Plan of Treatment Upcoming Encounters Date Type Department Care Team (Late st Contact Info) Description 02/22/2025 11:00 AM EST Office Visit [facility] [address] [place] [address] Feliciano Villavicencio, DO [address] [place] [address] 03/15/2025 10:00 AM EST Appointment [facility] [address] [place] [address] 03/15/2025 12:40 PM EST Office Visit [facility] [address] [place] [address] An[place]ete [place], PA [address] [place] [address] 06/03/2025 12:30 PM EDT Office Visit [facility] [address] [place] [address] Nile Rodriguez, DO [address] [facility] [address] [place] [phone] Health Maintenance Due Date Last Done Comments [facility]-Hepatitis C Screening 1950 [facility]-Medicare Annual Wellness (AWV) 1950 [facility]-/Child/Adol SDOH Screenings 1950 Diabetes: Dental Exam 1962 CT Colonography 1997 Colonoscopy 1997 FIT-DNA 1997 FIT 1997 FOBT 1997 Sigmoidoscopy 1997 [facility]-Colorectal Cancer Screening 1997 [facility]-Zoster Vaccines (1 of 2) 2002 [facility]- SDOH Screenings 08/24/2024 [facility]-Adult SDOH Screenings 08/24/2024 02/25/2024 [facility]-Diabetes: Hemoglobin A1C 08/24/2024 02/25/2024 [id number] Vaccine ( season) 2024 11/18/2020, 10/14/2020 [facility]-Depression Screening 12/03/2025 12/03/2024 [facility]-RSV Vaccine: 60+ Years or (1 - 1-dose 75+ series) 11/23/2027 [facility]-DTaP,Tdap,and Td Vaccines (2 - Td or Tdap) 12/18/2033 12/19/2023 [facility]-Influenza Vaccine Completed 11/05/2024 , 12/19/2023, 01/09/2020 [facility]-Pneumococcal Vaccine: 50+ Years Completed 12/18/2024, 06/30/2021 [facility]-Obesity Intervention Completed 025, 12/03/2024, 12/03/2024, Additional history exists HPV Vaccines Aged Out No longer eligi ble based on patient's age to complete this topic [facility]-HIB Vaccines Aged Out No longer e ligible based on patient's age to complete this topic [facility]-Hepatitis A Vaccines Aged Out No longer eligible based on patient's age to complete this topic [facility]-IPV Vaccines Aged Out No longer e ligible based on patient's age to complete this topic [facility]-Rotavirus Vaccines Aged Out No lo nger eligible based on patient's age to complete this topic Medical Devices Implanted Type Area Proposal Analyst Device Identifier Shelf Expiration Date Model / Serial / Lot Stent Carotid Protege Rx 8/6mm X 40mm/135 - [id number] Implanted:Qty: 1 on 02/28/2024 by Cynthia Tenorio MD at [id number] 08/26/2025 [id number] / / [id number] Procedures Procedure Name Priority Date/Time Associated Diagnosis Comments POC ULTRASOUND 12/21/2024 EMG / NERVE CONDUCTION STUDY Routine 12/03/2024 8:00 AM EDT Paresthesia of skin HEMOGLOBIN A1C Routine 02/25/2024 1:48 AM EST from Last 3 Months or Most Recently Relevant to Health Maintenance Results * POC Imaging (12/21/2024) Anatomical Region Laterality Modality Pelvis Other 12/21/2024 us External Provider IMG POINT OF CARE ULTRASOUND F inal Result * EMG / Nerve Conduction Study (12/03/2024 8:00 AM EDT) Anatomical Region Laterality Modality Other Narrative 12/03/2024 8:00 AM EDT Feliciano Villavicencio DO 12/09/2024 12:52 PM EMG / Nerve Conduction Study Date/Time: 12/03/2024 8:00 AM Performed by: Feliciano Villavicencio DO Authorized by: Nile Rodriguez DO us Nile Rodriguez DO NEUROLOGY ORDERABLES Final Result * (ABNORMAL) Hemoglobin A1c (02/25/2024 1:48 AM EST) Hemoglobin A1c 6.1(H) <5.7 % 02/25/2024 3:21 AM EST [facility] Blood Venous blood specimen / Unknown Venipuncture / Unknown 02/25/2024 1:48 AM EST 02/25/2024 2:06 AM EST Narrative [facility] - 02/25/2024 3:21 AM EST HA1C Interpretive Data: Diagnosis of Diabetes: Diabetic > or = 6.5% Pre-diabetic 5.7 to 6.4% Non-diabetic < or = 5.6% Glycemic Targets for Type I and Type II Diabetics: Non- Adults <7.0% Adults <6.0% Children and Adolescents <7.5% Source: [place] [employer]. Standards of medical care in diabetes,2017. Diabetes Care.2017:40 (suppl 1):S1-S135. HbA1c assay performed by an ion-exchange chromatography method that is certified traceable to the DCCT. us Jose Antonio Brady MD LAB BLOOD ORDERABLES Final R esult [facility] [address] [place] [address] from Last 3 Months or Most Recently Relevant to Health Maintenance Insurance MEDICARE [facility] Advance Directives * Full Code (Latest Code Status on File) Date Activated Date Inactivated Comments 03/02/2024 12:40 PM * Full Code Date Activated Date Inactivated Comments 02/25/2024 12:59 AM 03/02/2024 12:40 PM Question Answer Comments Patient has decision-making capacity? Yes Care Teams Manager Sign Relationship Specialty Start Date End Date Mela Sellers APRN [address] [place] [address] PCP - General 02/25/24
--- OUTSIDE RECORDS SUMMARY | 2025-01-18 11:43 | XMS_ITS | Encounter Summary ---
Author Organization Healthcare Address [address] [place] [address] Care Team Providers Care Grain Mixer Name Role Phone Mela Sellers VAN Primary Care Provider +1- [phone] Encounter Details Date Type Department Care Team ([facility] st Contact Info) Description 12/21/2024 Orders Only External Location [address] [place] [address] Provider, External Social History Tobacco Use Types Packs/Day Years [...] any time in the past 12 m [facility], were you homeless or living in a correction (including now)? No 02/25/2024 CAGE ASSESSMENT Answer [...] drink first t adam in the morning (EYE-PUMP INSTALLATION AND SERVICER) to steady your nerves or to get [...] on file documented as of this encounter Plan of Treatment Upcoming Encounters Date Type Department Care Team (Late st Contact Info) Description 02/22/2025 11:00 AM EST Office Visit [facility] [address] [place] [place] [address] Feliciano Villavicencio, [address] [place] [address] 03/15/2025 10:00 AM EST Appointment [facility] [address] [place] [address] 03/15/2025 12:40 PM EST Office Visit [facility] [address], [address] [place] [address] Annette Hill PA [address] [place] [address] 06/03/2025 12:30 PM EDT Office Visit [facility] [address] [place] [address] Nile Rodriguez DO [address] [place] [address] documented as of this encounter Procedures Procedure Name Priority Date/Time Associated Diagnosis Comments POC ULTRASOUND 12/21/2024 documented in this encounter Results * POC Imaging (12/21/2024) Anatomical Region Laterality Modality Pelvis Other 12/21/2024 us External Provider IMG POINT OF CARE ULTRASOUND F inal Result documented in this encounter Visit Diagnoses Not on filedocumented in this encounter Additional Health Concerns Assessment Noted Time A fall risk assessment has been complete d for the patient 12/21/2024 8:03 AM EST A Body Mass Index follow-up plan has been documented for the patient 12/29/2024 8:37 AM EST documented as of this encounter Care Teams Grain Mixer Relationship Specialty Start Date End Date Mela Sellers APRN [address] [place] [id number] PCP - General 02/25/24 documented as of this encounter
--- OUTSIDE RECORDS SUMMARY | 2025-01-18 11:43 | XMS_ITS | Encounter Summary ---
Author Organization Healthcare Address [address] [place] [address] Care Team Providers Care Resident Physician Name Role Phone Mela Sellers VAN Primary Care Provider +1- [phone] Encounter Details Date Type Department Care Team (Late st Contact Info) Description 12/04/2024 Telephone [facility] [address] [place] [address] Feliciano Villavicencio, [address] [place] [address] Social History Tobacco Use Types Packs/Day Years [...] time in the past 12 m [facility], were you homeless or living in a group home (including now)? No 02/25/2024 CAGE ASSESSMENT Answer [...] drink first t adam in the morning (EYE-COMPLIANCE AND CONTROL ANALYST) to steady your nerves or to get [...] on file documented as of this encounter Miscellaneous Notes * Telephone Encounter - Rachel Chen - 12/04/2024 9:47 AM EDT Clinical Concern/Question Reason for Call: Dr Villavicencio/ Patient Macey called to ask if patient's nerve block can be rescheduled for 12/21 in the morning. Please call to advise, thanks Best contact number: Other: [phone] Optimal time of day to reach caller: ANYTIME Additional comments/information from caller: None Note: Please do not reply to this message. Follow-up communication and further actions as a result of this message need to be communicated with the patient directly, if the patient is not active onMyChart. If the patient is active on MyChart, they will receive notification of the communication/outcome via MyChart. documented in this encounter Plan of Treatment Upcoming Encounters Date Type Department Care Team (Late st Contact Info) Description 02/22/2025 11:00 AM EST Office Visit Physical Medicine [facility] [address] [place] [address] Feliciano Villavicencio, [address] [place] [address] 03/15/2025 10:00 AM EST Appointment [facility] [address] [place] [address] 03/15/2025 12:40 PM EST Office Visit [facility] [address], 1[address] [place] [address] Annette Hill PA [address] [place] [address] 06/03/2025 12:30 PM EDT Office Visit [facility] [address] [place] [address] Nile Rodriguez, [address] [facility] [address] [place] [address] documented as of this encounter Visit Diagnoses Not on filedocumented in this encounter Additional Health Concerns Assessment Noted Time A fall risk assessment has been complete d for the patient 12/03/2024 10:49 AM EDT A Body Mass Index follow-up plan has been documented for the patient 12/03/2024 5:08 PM EDT documented as of this encounter Care Teams Resident Physician Relationship Specialty Start Date End Date Mela Sellers APRN [address] [place] [address] PCP - General 02/25/24 documented as of this encounter
--- OUTSIDE RECORDS SUMMARY | 2025-01-18 11:43 | XMS_ITS | Clinical Summary ---
Author Organization [facility] Address [address] [place] [address] Phone Care Team Providers Care Pigeon Fancier Name Role Phone Cyrus RIOS, Gil Javier Unavailable [phone] Reason for Visit and Chief Complaint referred by PCP: David Rider - The Chief Complaint is: 1 mon fu/ right RCR Problems Includes: Problems addressed during this encounter and other active Problems All Visits Onset Date Resolved Date Provider Condition S tatus Joint Pain Shoulder Left 04/21/2024 Villa Garcia PA-C Active Last Documented On 5 9:20AM ; [facility] SHOULDER REGION DIS NEC 01/07/2012 Asuncion kurtz MD Active Last Documented On 2 11:48AM ; [facility] Joint Pain Shoulder Right 12/17/2011 Asuncion Isbell MD Active Last Documented On 2 10:15AM ; [facility] Plan of Treatment Pt is scheduled for 04/14/12 at 9:15am with Dr Isbell/ag - Last Documented On 05/20/2012 4:35PM ; [facility] Assessments Includes: Assessments from this encounter No Assessments Recorded Medical Equipment - Implanted Devices Includes: Current Devices No Medical Equipment Recorded Medications Includes: Medications discussed during this encounter and other current Medications Current Medications (continue as prescribed) Atorvastatin Calcium 20 MG Oral Tablet 04/12/2024 Pr ovider: Mela Sellers APRN Diagnosis: Last Documented On 5 9:20AM By Ledy Gallegos ; [facility] Lisinopril 10 MG Oral Tablet 04/12/2024 Provider: Eugonda Fryman PUBLIC HEALTH NURSE Diagnosis: Last Documented On 5 9:20AM By Ledy Gallegos ; [facility] Loratadine 10 MG Oral Tablet 04/12/2024 Provider: Mela Sellers APRN Diagnosis: Last Documented On 5 9:20AM By Ledy Gallegos ; [facility] Clopidogrel Bisulfate 75 MG Oral Tablet 04/11/2024 P rovider: Trinitykamlesh Sellers PUBLIC HEALTH NURSE Diagnosis: Last Documented On 5 9:20AM By Ledy Gallegos ; [facility] Fish Oil OIL 12/17/2011 Provider: Diagnosis: Last Documented On 2 10:17AM By Green 1 User ; [facility] Garlic Oil 1500 MG OR CAPS 12/17/2011 Provider: Diagnosis: Last Documented On 2 10:17AM By Green 1 User ; [facility] Past Medications on file Percocet 10-325 MG OR TABS 01/07/2012 - 01/17/2012 Pro vider: Asuncion Isbell MD Diagnosis: alb Last Documented On 2 12:35PM By Viviane Marmolejo ; [facility] NOTE EX MISC 01/02/2012 - 01/03/2012 Provider: Debora Isbell MD Diagnosis: completed prior auth form taty Soriano/ faxed to / will wait for response//kw Last Documented On 2 1:39PM By Green 1 User ; [facility] Percocet 7.5-325 MG OR TABS 12/31/2011 - 01/07/2012 Pr ovider: Asuncion Isbell MD Diagnosis: sx on 01-01-12/kw Last Documented On 2 10:39AM By Green 1 User ; [facility] Butrans 10 MCG/HR TD PTWK 12/31/2011 - 01/28/2012 Prov ider: Asuncion Isbell MD Diagnosis: sx on 01-01-12/kw Last Documented On 2 10:40AM By Green 1 User ; [facility] Medications Administered Includes: Administered Medications from this encounter No Administered Medications Recorded Vital Signs Includes: Vital Signs from this encounter Vital Name 03/10/2012 09:15A Blood Pressure Sitting L 150/69 Pulse Rate-Sitting (bpm) 75 Respiration Rate (breaths/min) 14 Height (in) 71.5 Weight (lb) 200 Body Mass Index (kg/m2) 27.5 Body Surface Area (m2) 2.1 Last Documented: On 03/10/2012 9:38AM ; [facility] Results Includes: Results discussed during this encounter No Results Recorded For Specified Dates History of Present Illness Includes: History of Present Illness from this encounter ESME Batres is a 61 year old male. - Medication list reviewed with patient. Social History Description Last Updated No tobacco use 03/10/2012 Last Documented On 3 4:35PM ; [facility] Smoking status : Never smoked/ Recode: 4 03/10/2012 Last Documented On 3 4:35PM ; [facility] Procedures and Surgical History Includes: Procedures from this encounter Procedures Code Diagnosis Performing Provider Service L ocation Service Date Clinical summary provided to patient Last Documented On 3 9:38AM ; [facility] Medical History Includes: Medical History addressed during this encounter No Medical History Recorded Family History Includes: Family History addressed during this encounter No Family History Recorded Review of Systems Includes: Review of Systems from this encounter No Review of Systems Recorded Mental Status Includes: Mental Status from this encounter No Mental Status Recorded Functional Status Includes: Functional Status from this encounter No Functional Status Recorded Physical Exam Includes: Physical Exam from this encounter Allergies Includes: Active Allergies No Known Allergies Encounters Encounter Provider Location Date Check-In Time Check- Out Time Diagnosis Post Op [facility] 10:22[facility] Insurance Includes: Active Insurance Policies Plan Name Member ID Group # Subscriber Relationship Effect nadiya Dates 1 - Medicare Part B [facility] [id number] Vincent Alanis 2 - [facility] CLAIMS DIVISION [id number] Vincent Alanis Clinical Notes Includes: Clinical Notes from this encounter No Clinical Notes Recorded
--- OUTSIDE RECORDS SUMMARY | 2025-01-18 11:43 | XMS_ITS | Encounter Summary ---
Author Organization [facility] Address [address] [place] [address] Care Team Providers Care Product Representative Name Role Phone Mela Sellers APRN Primary Care Provider +1- [phone] Encounter Details Date Type Department Care Team (Latest Contact Info) Description 12/21/2024 Travel Social History Tobacco Use Types Packs/Day Years [...] any time in the past 12 m [facility], were you homeless or living in a skilled nursing (including now)? No 02/25/2024 CAGE ASSESSMENT Answer [...] drink first t adam in the morning (EYE-CHANNEL OPENER) to steady your nerves or to get [...] [facility] [address] [place] [address] Feliciano Villavicencio, DO [address] [place] [address] 03/15/2025 10:00 AM EST Appointment [facility] [address] [place] [address] 03/15/2025 12:40 PM EST Office Visit [place] [facility] [address], 1st [place] [address] Annette Hill, PA [address] [place] [address] 06/03/2025 12:30 PM EDT Office Visit [facility] [address] [place] [address] Niel Rodriguez, [address] [place] [address] documented as of this encounter Visit Diagnoses Not on filedocumented in this encounter Additional Health Concerns Assessment Noted Time A fall risk assessment has been complete d for the patient 12/21/2024 8:03 AM EST A Body Mass Index follow-up plan has been documented for the patient 12/29/2024 8:37 AM EST documented as of this encounter Care Teams Product Representative Relationship Specialty Start Date End Date Mela Sellers APRN [address] [place] [id number] PCP - General 02/25/24 documented as of this encounter
--- OUTSIDE RECORDS SUMMARY | 2025-01-18 11:43 | XMS_ITS | Encounter Summary ---
Author Organization [facility] Address [address] [place] [address] Care Team Providers Care Major Gifts Manager Name Role Phone Mela Sellers APRN Primary Care Provider +1- [phone] Encounter Details Date Type Department Care Team (Latest Contact Info) Description 12/03/2024 Travel Social History Tobacco Use Types Packs/Day [...] any time in the past 12 m [facility], were you homeless or living in a [facility] (including now)? No 02/25/2024 CAGE ASSESSMENT Answer [...] drink first t adam in the morning (EYE-RELIEF CHARGE NURSE) to steady your nerves or to get [...] on file documented as of this encounter Functional Status * Over the past 2 weeks, how often have you been bothered by any of the following problems? Question Answer Date of Assessment Author Little interest or pleasure in doing things Not at all 12/03/2024 10:49 AM Jemima Perez Feeling down, depressed, or hopeless Not at all 12/03/2024 10:49 AM Jemima Perez Patient Health Questionnaire -2 Score 0 12/03/2024 [...] Shine Perez documented as of this encounter Plan of Treatment Upcoming Encounters Date Type Department Care Team (Late st Contact Info) Description 02/22/2025 11:00 AM EST Office Visit [facility] at [facility] [address] [place] [address] Feliciano Villavicencio, [address] [place] [address] 03/15/2025 10:00 AM EST Appointment [facility] [address] [facility] [address] [place] [address] 03/15/2025 12:40 PM EST Office Visit [place] [facility] [address], [address]st [place] [address] Annette Hill, PA [address] [place] [address] 06/03/2025 12:30 PM EDT Office Visit [facility] [address] [place] [address] Nile Rodriguez DO [address] [facility] [address] [place] [address] documented as of this encounter Visit Diagnoses Not on filedocumented in this encounter Additional Health Concerns Assessment Noted Time A fall risk assessment has been complete d for the patient 12/03/2024 10:49 AM EDT A Body Mass Index follow-up plan has been documented for the patient 12/03/2024 5:08 PM EDT documented as of this encounter Care Teams Major Gifts Manager Relationship Specialty Start Date End Date Mela Sellers APRN [address] [place] [address] PCP - General 02/25/24 documented as of this encounter
--- OUTSIDE RECORDS SUMMARY | 2025-01-18 11:43 | XMS_ITS | Clinical Summary ---
Author Organization [facility] Address [address] [place] [address] Phone Care Team Providers Care Senior Network Architect Name Role Phone Cyrus RIOS, Gil Herrera Unavailable [phone] Reason for Visit and Chief Complaint referred by David Rider - The Chief Complaint is: Right shoulder post op/pain and swelling Problems Includes: Problems addressed during this encounter and other active Problems Current Visit Onset Date Resolved Date Provider Conditio n Status SHOULDER REGION DIS NEC 01/07/2012 Asuncion Isbell MD Active Last Documented On 2 11:48AM ; [facility] Past Visits Onset Date Resolved Date Provider Condition Status Joint Pain Shoulder Left 04/21/2024 Villa Garcia PA-C Active Last Documented On 5 9:20AM ; [facility] Joint Pain Shoulder Right 12/17/2011 Asuncion Isbell MD Active Last Documented On 2 10:15AM ; [facility] Plan of Treatment 02/03 at 11:00 - Last Documented On 05/19/2012 1:59PM ; [facility] Assessments Includes: Assessments from this encounter No Assessments Recorded Medical Equipment - Implanted Devices Includes: Current Devices No Medical Equipment Recorded Medications Includes: Medications discussed during this encounter and other current Medications Current Medications (continue as prescribed) Atorvastatin Calcium 20 MG Oral Tablet 04/12/2024 Pr ovider: Mela Sellers APRN Diagnosis: Last Documented On 5 9:20AM By Ledy Gallegos ; [facility] Lisinopril 10 MG Oral Tablet 04/12/2024 Provider: Mela Sellers APRN Diagnosis: Last Documented On 5 9:20AM By Ledy Gallegos ; [facility] Loratadine 10 MG Oral Tablet 04/12/2024 Provider: Mela Sellers APRN Diagnosis: Last Documented On 5 9:20AM By Ledy Gallegos ; [facility] Clopidogrel Bisulfate 75 MG Oral Tablet 04/11/2024 P rovider: Trinityreiholly Verito ARAUJO Diagnosis: Last Documented On 5 9:20AM By Ledy Gallegos ; [facility] Fish Oil OIL 12/17/2011 Provider: Diagnosis: Last Documented On 2 10:17AM By Green 1 User ; [facility] Garlic Oil 1500 MG OR CAPS 12/17/2011 Provider: Diagnosis: Last Documented On 2 10:17AM By Green 1 User ; [facility] Past Medications on file Percocet 10-325 MG OR TABS 01/07/2012 - 01/17/2012 Pro vider: Asuncion Isbell MD Diagnosis: alb Last Documented On 2 12:35PM By Viviane Marmolejo ; [facility] NOTE EX MISC 01/02/2012 - 01/03/2012 Provider: Debora Isbell MD Diagnosis: completed prior auth form taty Soriano/ faxed to / will wait for response//kw Last Documented On 2 1:39PM By Green 1 User ; [facility] Percocet 7.5-325 MG OR TABS 12/31/2011 - 01/07/2012 Pr ovider: Asuncion Isbell MD Diagnosis: sx on 01-01-12//kw Last Documented On 2 10:39AM By Green 1 User ; [facility] Butrans 10 MCG/HR TD PTWK 12/31/2011 - 01/28/2012 Prov ider: Asuncion Isbell MD Diagnosis: sx on 01-01-12//kw Last Documented On 2 10:40AM By Green 1 User ; [facility] Medications Administered Includes: Administered Medications from this encounter No Administered Medications Recorded Vital Signs Includes: Vital Signs from this encounter Vital Name 01/07/2012 11:00A Blood Pressure Sitting (mmHg) 138/79 Pulse Rate-Sitting (bpm) 71 Height (in) 71.5 Weight (lb) 220 Body Mass Index (kg/m2) 30.3 Body Surface Area (m2) 2.2 Last Documented: On 01/07/2012 11:49A M ; [facility] Results Includes: Results discussed during this encounter No Results Recorded For Specified Dates History of Present Illness Includes: History of Present Illness from this encounter HPI Vincent Batres is a 61 year old male. - Medication list reviewed. Social History Description Last Updated No tobacco use 01/07/2012 Last Documented On 3 1:59PM ; [facility] Smoking status : Never smoked/ Recode: 4 01/07/2012 Last Documented On 3 1:59PM ; [facility] Procedures and Surgical History Includes: Procedures from this encounter Procedures Code Diagnosis Performing Provider Service L ocation Service Date Clinical summary provided to patient Last Documented On 2 11:50AM ; [facility] Medical History Includes: Medical History addressed [...] Time Diagnosis Post Op Asuncion Isbell MD [facility] 2 10:48AM 1:45PM Insurance Includes: Active Insurance Policies Plan Name Member ID Group # Subscriber Relationship Effect nadiya Dates 1 - Medicare Part B [facility] [id number] Vincent Alanis 2 - [facility] CLAIMS DIVISION [id number] Vincent Alanis Clinical Notes Includes: Clinical Notes from this encounter No Clinical Notes Recorded
--- OUTSIDE RECORDS SUMMARY | 2025-01-18 11:44 | XMS_ITS ---
Care Plan - [facility], [facility] Created on: January 18, 2025 Vincent Batres : 1950 Sex: Male Author Organization [facility] Address [address] [place] [address] Phone Care Team Providers Care Ballistics Tester Name Role Phone Cyrus RIOS, Gil Herrera Unavailable [phone]
--- OUTSIDE RECORDS SUMMARY | 2025-01-18 11:44 | XMS_ITS | Clinical Summary ---
Author Organization [facility] , [facility] Address [address] [place] [address] Phone Care Team Providers Care Developer [employer] Name Role Phone Cyrus RIOS, Gil Javier Unavailable [phone] Reason for Visit and Chief Complaint referred by pcp-mine macario - The Chief Complaint is: rt rcr biceps Problems Includes: Problems addressed during this encounter and other active Problems All Visits Onset Date Resolved Date Provider Condition S tatus Joint Pain Shoulder Left 04/21/2024 Villa Garcia PA-C Active Last Documented On 5 9:20AM ; [facility], [facility] SHOULDER REGION DIS NEC 01/07/2012 Asuncion kurtz MD Active Last Documented On 2 11:48AM ; [facility], [facility] Joint Pain Shoulder Right 12/17/2011 Asuncion Isbell MD Active Last Documented On 2 10:15AM ; [facility], [facility] Plan of Treatment Patient will follow up with Dr Isbell on 06-16-12 @ 10:00am... lmr - Last Documented On 05/22/2012 4:26PM ; [facility], [facility] Assessments Includes: Assessments from this encounter No Assessments Recorded Medical Equipment - Implanted Devices Includes: Current Devices No Medical Equipment Recorded Medications Includes: Medications discussed during this encounter and other current Medications Current Medications (continue as prescribed) Atorvastatin Calcium 20 MG Oral Tablet 04/12/2024 Pr ovider: Mela Sellers APRN Diagnosis: Last Documented On 5 9:20AM By Ledy Gallegos ; [facility], [facility] Lisinopril 10 MG Oral Tablet 04/12/2024 Provider: Eugonda Fryman OUTPATIENT PHARMACY MANAGER Diagnosis: Last Documented On 5 9:20AM By Ledy Gallegos ; [facility] Loratadine 10 MG Oral Tablet 04/12/2024 Provider: Trinitykamlesh Sellers OUTPATIENT PHARMACY MANAGER Diagnosis: Last Documented On 5 9:20AM By Ledy Gallegos ; [facility] Clopidogrel Bisulfate 75 MG Oral Tablet 04/11/2024 P rovider: Mela Sellers OUTPATIENT PHARMACY MANAGER Diagnosis: Last Documented On 5 9:20AM By Ledy Gallegos ; [facility] Fish Oil OIL 12/17/2011 Provider: Diagnosis: Last Documented On 2 10:17AM By Green 1 User ; [facility] Garlic Oil 1500 MG OR CAPS 12/17/2011 Provider: Diagnosis: Last Documented On 2 10:17AM By Green 1 User ; [facility] Past Medications on file Percocet 10-325 MG OR TABS 01/07/2012 - 01/17/2012 Pro vider: Asuncion Isbell MD Diagnosis: alb Last Documented On 2 12:35PM By Viviane Marmolejo ; [facility] NOTE EX MISC 01/02/2012 - 01/03/2012 Provider: Debora Isbell MD Diagnosis: completed prior auth form fo abel Soriano/ faxed to / will wait for response//kw Last Documented On 2 1:39PM By Green 1 User ; [facility] Percocet 7.5-325 MG OR TABS 12/31/2011 - 01/07/2012 Pr ovider: Asuncion Isbell MD Diagnosis: sx on 01-01-12/kw Last Documented On 2 10:39AM By Green 1 User ; [facility] Butrans 10 MCG/HR TD PTWK 12/31/2011 - 01/28/2012 Prov ider: Asuncion Isbell MD Diagnosis: sx on 01-01-12kw Last Documented On 2 10:40AM By Green 1 User ; [facility], [facility] Medications Administered Includes: Administered Medications from this encounter No Administered Medications Recorded Vital Signs Includes: Vital Signs from this encounter Vital Name 04/18/2012 11:00A Blood Pressure Sitting R 134/76 Pulse Rate-Sitting (bpm) 61 Height (in) 71.5 Weight (lb) 200 Body Mass Index (kg/m2) 27.5 Body Surface Area (m2) 2.1 Last Documented: On 04/18/2012 11:46A M ; [facility] Results Includes: Results discussed during this encounter No Results Recorded For Specified Dates History of Present Illness Includes: History of Present Illness from this encounter ESME Batres is a 61 year old male. - Medication list reviewed. Social History Description Last Updated No tobacco use 04/18/2012 Last Documented On 3 4:26PM ; [facility] Smoking status : Never smoked/ Recode: 4 04/18/2012 Last Documented On 3 4:26PM ; [facility], [facility] Procedures and Surgical History Includes: Procedures from this encounter Procedures Code Diagnosis Performing Provider Service L ocation Service Date Clinical summary provided to patient Last Documented On 3 11:34AM ; [facility], [facility] Medical History Includes: Medical History addressed during [...] Date Check-In Time Check- Out Time Diagnosis Follow Up Asuncion Isbell MD [facility] 3 10:41AM 12:03PM Insurance Includes: Active Insurance Policies Plan Name Member ID Group # Subscriber Relationship Effect nadiya Dates 1 - Medicare Part B [facility] [id number] Vincent Alanis 2 - [facility] CLAIMS DIVISION [id number] Vincent Alanis Clinical Notes Includes: Clinical Notes from this encounter No Clinical Notes Recorded
--- OUTSIDE RECORDS SUMMARY | 2025-01-18 11:44 | XMS_ITS | Clinical Summary ---
Author Organization [facility] , [facility] Address [address] [place] [address] Phone Care Team Providers Care Greenhouse Or Nursery Transplanter Name Role Phone Cyrus RIOS, Gil Herrera Unavailable [phone] Reason for Visit and Chief Complaint referred by PCP: David Rider - The Chief Complaint is: 4 wk fu/ right RCR Problems Includes: Problems addressed during this encounter and other active Problems All Visits Onset Date Resolved Date Provider Condition S tatus Joint Pain Shoulder Left 04/21/2024 Villa Garcia PA-C Active Last Documented On 5 9:20AM ; [facility], [facility] SHOULDER REGION DIS NEC 01/07/2012 Asuncion kurtz MD Active Last Documented On 2 11:48AM ; [facility], [facility] Joint Pain Shoulder Right 12/17/2011 Asuncion Isbell MD Active Last Documented On 2 10:15AM ; [facility], [facility] Plan of Treatment Patient will follow up in [address] Isbell on 03-03-12 @ 9:00am... lmr - Last Documented On 05/20/2012 2:01PM ; [facility], [facility] Assessments Includes: Assessments from this encounter No Assessments Recorded Medical Equipment - Implanted Devices Includes: Current Devices No Medical Equipment Recorded Medications Includes: Medications discussed during this encounter and other current Medications Current Medications (continue as prescribed) Atorvastatin Calcium 20 MG Oral Tablet 04/12/2024 Pr ovider: Mela Sellers APRN Diagnosis: Last Documented On 5 9:20AM By Ledy Gallegos ; [facility], [facility] Lisinopril 10 MG Oral Tablet 04/12/2024 Provider: Eugonda Fryman CARDIAC SONOGRAPHER Diagnosis: Last Documented On 5 9:20AM By Ledy Gallegos ; [facility] Loratadine 10 MG Oral Tablet 04/12/2024 Provider: Mela Sellers CARDIAC SONOGRAPHER Diagnosis: Last Documented On 5 9:20AM By Ledy Gallegos ; [facility] Clopidogrel Bisulfate 75 MG Oral Tablet 04/11/2024 P rovider: Mela Sellers CARDIAC SONOGRAPHER Diagnosis: Last Documented On 5 9:20AM By Ledy Gallegos ; [facility] Fish Oil OIL 12/17/2011 Provider: Diagnosis: Last Documented On 2 10:17AM By Green 1 User ; [facility] Garlic Oil 1500 MG OR CAPS 12/17/2011 Provider: Diagnosis: Last Documented On 2 10:17AM By Green 1 User ; [facility] Past Medications on file Percocet 10-325 MG OR TABS 01/07/2012 - 01/17/2012 Pro vider: Asuncion Isbell MD Diagnosis: alb Last Documented On 2 12:35PM By Viviane Marmolejo ; [facility] NOTE EX MISC 01/02/2012 - 01/03/2012 Provider: Debora Isbell MD Diagnosis: completed prior auth form fo r Bo/ faxed to / will wait for response//kw Last Documented On 2 1:39PM By Green 1 User ; [facility] Percocet 7.5-325 MG OR TABS 12/31/2011 - 01/07/2012 Pr ovider: Asuncion Isbell MD Diagnosis: sx on 01-01-12kw Last Documented On 2 10:39AM By Green 1 User ; [facility] Butrans 10 MCG/HR TD PTWK 12/31/2011 - 01/28/2012 Prov ider: Asuncion Isbell MD Diagnosis: sx on 01-01-12kw Last Documented On 2 10:40AM By Green 1 User ; [facility] Medications Administered Includes: Administered Medications from this encounter No Administered Medications Recorded Vital Signs Includes: Vital Signs from this encounter Vital Name 02/04/2012 11:00A Blood Pressure Sitting L 120/78 Pulse Rate-Sitting (bpm) 82 Respiration Rate (breaths/min) 14 Height (in) 71.5 Weight (lb) 200 Body Mass Index (kg/m2) 27.5 Body Surface Area (m2) 2.1 Last Documented: On 02/04/2012 11:17A M ; [facility] Results Includes: Results discussed during this encounter No Results Recorded For Specified Dates History of Present Illness Includes: History of Present Illness from this encounter HPI Vincent Batres is a 61 year old male. - Medication list reviewed with patient. Social History Description Last Updated No tobacco use 02/04/2012 Last Documented On 3 2:01PM ; [facility], [facility] Smoking status : Never smoked/ Recode: 4 02/04/2012 Last Documented On 3 2:01PM ; [facility], [facility] Procedures and Surgical History Includes: Procedures from this encounter Procedures Code Diagnosis Performing Provider Service L ocation Service Date Clinical summary provided to patient Last Documented On 2 11:18AM ; [facility] Medical History Includes: Medical History addressed [...] Time Diagnosis Follow Up Asuncion Isbell [facility] 2 10:46AM 12:09PM Insurance Includes: Active Insurance Policies Plan Name Member ID Group # Subscriber Relationship Effect nadiya Dates 1 - Medicare Part B [facility] [id number] Vincent Alanis 2 - [facility] [employer] [id number] Vincent Alanis Clinical Notes Includes: Clinical Notes from this encounter No Clinical Notes Recorded
--- OUTSIDE RECORDS SUMMARY | 2025-01-18 11:44 | XMS_ITS | Clinical Summary ---
Author Organization [facility] Address [address] [place] [address] Phone Care Team Providers Care Spanish Speaking Nanny Name Role Phone Cyrus RIOS, Gil Herrera Unavailable Unavail able Reason for Visit and Chief Complaint The Chief Complaint is: LT shoulder pain Problems Includes: Problems addressed during this encounter and other active Problems Current Visit Onset Date Resolved Date Provider Condanayao n Status Joint Pain Shoulder Left 04/21/2024 Villa Garcia PA-C Active Last Documented On 5 9:20AM ; [facility] Past Visits Onset Date Resolved Date Provider Condition Status SHOULDER REGION DIS NEC 01/07/2012 Asuncion Isbell MD Active Last Documented On 2 11:48AM ; [facility] Joint Pain Shoulder Right 12/17/2011 Asuncion Isbell MD Active Last Documented On 2 10:15AM ; [facility], [facility] Plan of Treatment - Patient screened for future fall risk: documentation of any fall with injury in past year - Last Documented On 04/21/2024 12:59PM ; [facility], [facility] Instructions to patient Lose weight Last Documented On 5 9:23AM ; [facility], [facility] Assessments Includes: Assessments from this encounter Findings - Overweight - Last Documented On 04/21/2024 12:59PM ; [facility], [facility] Instructions Includes: Instructions from this encounter Instructions to patient Lose weight Last Documented On 5 9:23AM ; [facility] Medical Equipment - Implanted Devices Includes: Current Devices No Medical Equipment Recorded Medications Includes: Medications discussed during this encounter and other current Medications Current Medications (continue as prescribed) Atorvastatin Calcium 20 MG Oral Tablet 04/12/2024 Pr ovider: Eugonda Fryman [employer] Diagnosis: Last Documented On 5 9:20AM By Ledy Gallegos ; [facility] Lisinopril 10 MG Oral Tablet 04/12/2024 Provider: Mela Reypraveenjoana [employer] Diagnosis: Last Documented On 5 9:20AM By Ledy Gallegos ; [facility] Loratadine 10 MG Oral Tablet 04/12/2024 Provider: Mela Sellers [employer] Diagnosis: Last Documented On 5 9:20AM By Ledy Gallegos ; [facility] Clopidogrel Bisulfate 75 MG Oral Tablet 04/11/2024 P rovider: Mela Sellers [employer] Diagnosis: Last Documented On 5 9:20AM By Ledy Gallegos ; [facility], [facility] Fish Oil OIL 12/17/2011 Provider: Diagnosis: Last Documented On 2 10:17AM By Peter 1 User ; [facility] Garlic Oil 1500 MG OR CAPS 12/17/2011 Provider: Diagnosis: Last Documented On 2 10:17AM By Green 1 User ; [facility] Past Medications on file Percocet 10-325 MG OR TABS 01/07/2012 - 01/17/2012 Pro vider: Asuncion Isbell MD Diagnosis: alb Last Documented On 2 12:35PM By Viviane Marmolejo ; [facility] NOTE EX MISC 01/02/2012 - 01/03/2012 Provider: Debora Isbell MD Diagnosis: completed prior auth form fo r Bo/ faxed to / will wait for response//kw Last Documented On 2 1:39PM By Green 1 User ; [facility] Percocet 7.5-325 MG OR TABS 12/31/2011 - 01/07/2012 Pr ovider: Asuncion Isbell MD Diagnosis: sx on 01-01-12//kw Last Documented On 2 10:39AM By Green 1 User ; [facility] Butrans 10 MCG/HR TD PTWK 12/31/2011 - 01/28/2012 Prov ider: Asuncion Isbell MD Diagnosis: sx on 12-31-/kw Last Documented On 2 10:40AM By Green 1 User ; [facility] Medications Administered Includes: Administered Medications from this encounter No Administered Medications Recorded Vital Signs Includes: Vital Signs from this encounter Vital Name 04/21/2024 09:23A Height (in) 72 Weight (lb) 225 Body Mass Index 30.5 Body Surface Area 2.2 Note: bfj Last Documented: On 04/21/2024 9:23AM ; [facility] Results Includes: Results discussed during this encounter No Results Recorded For Specified Dates History of Present Illness Includes: History of Present Illness from this encounter ESME Batres is a 73 year old male. - Symptoms pain worse with using arm. - Allergy list reviewed - Problem list reviewed - Medication list reviewed - Previous history of new onset pain Injury is not work related or an automotive accident - Pain is occasional (25% of the time) - Pain is dull, aching - Patient pain level from 1-10: 5 - - Review of medications documented Patient is seen today for initial visit regarding his left shoulder pain. He denies any specific injury to the left shoulder. States it has been ongoing for last few months. Did have a stroke in February of this year. He is currently on clopidogrel for his stroke. He also had a carotid stent placed after the stroke. He is currently in rehab due to the stroke which involve mostly his left side. He did have an MRI prior to arrival Review of systems Left shoulder pain Physical exam General Exam: The patient is awake and alert. No acute distress. Normal mood and affect for age. Well groomed and nourished Neuro: Sensation was intact to light touch over the extremity. Vascular: +2 radial pulses. No edema. Derm: No signs of active infection. No acute skin changes. Musculoskeletal: Normal gait and station. No muscle atrophy. No joint effusion. No muscle or bony deformity. Patient has pain with active forward flexion. Full passive motion. There is pain and weakness with supraspinatus/infraspinatus/subscapularis testing. Imaging MRI of the left shoulder does show full-thickness tears of the supraspinatus and infraspinatus. There is disruption of the subscap with medial dislocation of the long head of the biceps tendon Assessment Left shoulder rotator cuff tear Therapy The risks of the procedure were explained and verbally acknowledge by the patient. A verbal consent was obtained. Alternate treatments have also been reviewed. Skin was prepped with alcohol. 40 mg of kenalog with 2 cc of lidocaine and 2cc of plain Marcaine were injected into the subacromial bursa. This was placed just under the posterior lateral corner of the acromion. The needle was then gently withdrawn and a Band-Aid was applied. Plan We will proceed with the injection at this time. Patient will follow up with this neurologist regarding the continuance of his anti coagulant medicine. He will follow up my surgeon in 6-8 weeks Social History Description Last Updated Caffeine use 04/21/2024 Last Documented On 5 12:59PM ; [facility] Exercising regularly 04/21/2024 Last Documented On 5 12:59PM ; [facility] No recent change in diet 04/21/2024 Last Documented On 5 12:59PM ; [facility] Not a current smoker. 04/21/2024 Last Documented On 5 12:59PM ; [facility] Not using alcohol 04/21/2024 Last Documented On 5 12:59PM ; [facility] Not using drugs 04/21/2024 Last Documented On 5 12:59PM ; [facility] No tobacco use 04/18/2012 Last Documented On 5 9:21AM ; [facility] Smoking status : Never smoked/ Recode: 4 04/18/2012 Last Documented On 5 9:21AM ; [facility] Procedures and Surgical History Includes: Procedures from this encounter Procedures Code Diagnosis Performing Provider Service Location Service Date DRAIN/INJECT, JOINT/BURSA (LEFT) Complete rotatr-cuff tear/ruptr of left shoulder, not trauma Villa Garcia PA-C [facility] 04/21/2024 Last Documented On 5 11:04AM ; [facility] Triamcinolone/Kenalog, 10mg per cc J3301 Complete rotatr-cuff tear/ruptr of left shoulder, not trauma Villa Garcia PA-C [facility] 04/21/2024 Last Documented On 5 11:04AM ; [facility] Surgical History Last Updated History of appendectomy 04/21/2024 Last Documented On 12:59PM ; [facility] History of Previous Fractures 04/21/2024 Last Documented On 12:59PM ; [facility] Medical History Includes: Medical History addressed during this encounter Description Last Updated History of History of Cancer 04/21/2024 Last Documented On 5 12:59PM ; [facility] History of Stroke 04/21/2024 Last Documented On 12:59PM ; [facility] Family History Includes: Family History addressed during this encounter Description Last Updated Diabetes mellitus 04/21/2024 Last Documented On 12:59PM ; [facility] Family history of cancer 04/21/2024 Last Documented On 5 12:59PM ; [facility] Family history of heart disease 04/22/19 Last Documented On 5 12:59PM ; [facility] Family history of systemic hypertension 04/21/2024 Last Documented On 5 12:59PM ; [facility] Stroke / Seizures 04/21/2024 Last Documented On 12:59PM ; [facility] Review of Systems Includes: Review of Systems from this encounter Systemic: Not feeling tired, no recent weight loss, and no recent weight gain. Head: No headache and no sinus pain. Eyes: No vision problems, no Cataracts, no Glasses/Contacts, and no Glaucoma. Otolaryngeal: No hearing loss and no tinnitus. Cardiovascular: No chest pain or discomfort, no palpitations, no Hypertension, and no High Cholesterol. Pulmonary: No daytime asthma symptoms and no chronic cough. No wheezing. Gastrointestinal: No heartburn and no abdominal pain. No Indigestion, no Peptic Ulcer, no GI Stomach Bleed, no Ulcers, and no Acid Reflux. Endocrine: No hot flashes, no muscle weakness, no Diabetes, no Hypothyroid, and no Hyperthyroid. Hematologic: No easy bleeding, no tendency for easy bruising, and no Anemia. Musculoskeletal: No Arthritis and no lower back pain. No soft tissue swelling and no localized joint pain. Neurological: No dizziness, no convulsions, and no numbness. Psychological: No anxiety, no emotional lability, no depression, and no insomnia. Not crying for no reason. Skin: No dry skin. No Ulcers, no Scars, and no rash. Allergic and Immunologic: No complaint of seasonal allergic reaction. Mental Status Includes: Mental Status from this encounter Description No anxiety Functional Status Includes: Functional Status from this encounter No Functional Status Recorded Physical Exam Includes: Physical Exam from this encounter Allergies Includes: Active Allergies No Known Allergies Encounters Encounter Provider Location Date Check-In Time Check-Out Time Diagnosis Physician Specified Villa Garcia PA-C [facility] 04/22/19 25 8:57AM 9:49AM Overweight Insurance Includes: Active Insurance Policies Plan Name Member ID Group # Subscriber Relationship Effect nadiya Dates 1 - Medicare Part B [facility] [id number] Vincent Batres Self 2 - [facility] [employer] [id number] Vincent Batres Self Clinical Notes Includes: Clinical Notes from this encounter * Progress note Date Encounter Last Documented by 04/21/2024 Physician Specified Last cynthia garcia on 04/21/2024; 12:59 PM, Villa Garcia PA-C; [facility] Active Problems & Conditions - Joint Pain, Localized in the Left Shoulder - Joint Pain, Localized in the Right Shoulder - SHOULDER REGION DIS NEC Chief Complaint The Chief Complaint is: LT shoulder pain. Referred Here Referred by. History of Present Illness Vincent Batres is a 73 year old male. - Symptoms pain worse with using arm. - Allergy list reviewed - Problem list reviewed - Medication list reviewed - Previous history of new onset pain Injury is not work related or an automotive accident - Pain is occasional (25% of the time) - Pain is dull, aching - Patient pain level from 1-10: 5 - - Review of medications documented Patient is seen today for initial visit regarding his left shoulder pain. He denies any specific injury to the left shoulder. States it has been ongoing for last few months. Did have a stroke in February of this year. He is currently on clopidogrel for his stroke. He also had a carotid stent placed after the stroke. He is currently in rehab due to the stroke which involve mostly his left side. He did have an MRI prior to arrival Review of systems Left shoulder pain Physical exam General Exam: The patient is awake and alert. No acute distress. Normal mood and affect for age. Well groomed and nourished Neuro: Sensation was intact to light touch over the extremity. Vascular: +2 radial pulses. No edema. Derm: No signs of active infection. No acute skin changes. Musculoskeletal: Normal gait and station. No muscle atrophy. No joint effusion. No muscle or bony deformity. Patient has pain with active forward flexion. Full passive motion. There is pain and weakness with supraspinatus/infraspinatus/subscapularis testing. Imaging MRI of the left shoulder does show full-thickness tears of the supraspinatus and infraspinatus. There is disruption of the subscap with medial dislocation of the long head of the biceps tendon Assessment Left shoulder rotator cuff tear Therapy The risks of the procedure were explained and verbally acknowledge by the patient. A verbal consent was obtained. Alternate treatments have also been reviewed. Skin was prepped with alcohol. 40 mg of kenalog with 2 cc of lidocaine and 2cc of plain Marcaine were injected into the subacromial bursa. This was placed just under the posterior lateral corner of the acromion. The needle was then gently withdrawn and a Band-Aid was applied. Plan We will proceed with the injection at this time. Patient will follow up with this neurologist regarding the continuance of his anti coagulant medicine. He will follow up my surgeon in 6-8 weeks Current Medication - Atorvastatin Calcium 20 MG Oral Tablet 30 days, 0 refills - Clopidogrel Bisulfate 75 MG Oral Tablet 30 days, 0 refills - [facility] Garlic Oil 1500 MG Capsule 0 days, 0 refills - Fish Oil 0 days, 0 refills - Lisinopril 10 MG Oral Tablet 30 days, 0 refills - Loratadine 10 MG Oral Tablet 30 days, 0 refills Past Medical/Surgical History Reported: History of Stroke. Diagnoses: History of Cancer Surgical: - Appendectomy - Previous Fractures Social History Not a current smoker. Current diet: No recent change in diet. Caffeine use: Caffeine use. Tobacco use: No tobacco use and smoking status: Never smoker. Alcohol: Not using alcohol. Drug Use: Not using drugs. Habits: Exercising regularly. Allergies - No Known Allergies Family History Cancer Heart disease Stroke / Seizures Diabetes mellitus Systemic hypertension Review Of Systems Systemic: Not feeling tired, no recent weight loss, and no recent weight gain. Head: No headache and no sinus pain. Eyes: No vision problems, no Cataracts, no Glasses/Contacts, and no Glaucoma. Otolaryngeal: No hearing loss and no tinnitus. Cardiovascular: No chest pain or discomfort, no palpitations, no Hypertension, and no High Cholesterol. Pulmonary: No daytime asthma symptoms and no chronic cough. No wheezing. Gastrointestinal: No heartburn and no abdominal pain. No Indigestion, no Peptic Ulcer, no GI Stomach Bleed, no Ulcers, and no Acid Reflux. Endocrine: No hot flashes, no muscle weakness, no Diabetes, no Hypothyroid, and no Hyperthyroid. Hematologic: No easy bleeding, no tendency for easy bruising, and no Anemia. Musculoskeletal: No Arthritis and no lower back pain. No soft tissue swelling and no localized joint pain. Neurological: No dizziness, no convulsions, and no numbness. Psychological: No anxiety, no emotional lability, no depression, and no insomnia. Not crying for no reason. Skin: No dry skin. No Ulcers, no Scars, and no rash. Allergic and Immunologic: No complaint of seasonal allergic reaction. Physical Findings - Vitals taken 04/21/2024 09:23 am bfj Height 72 in Weight 225 lbs Body Mass Index 30.5 kg/m2 Body Surface Area 2.2 m2 Assessment - Overweight Counseling/Education - Tobacco non-user - Use of tobacco assessment performed - Lose weight Plan - Patient screened for future fall risk: documentation of any fall with injury in past year
--- OUTSIDE RECORDS SUMMARY | 2025-01-18 11:44 | XMS_ITS ---
Author Organization [facility] Address [address] [address] Phone Care Team Providers Care Dust Mill Operator Name Role Phone Cyrus RIOS, Gil Javier Unavailable [phone] Problems Includes: Active, inactive, and resolved Problems All Visits Onset Date Resolved Date Provider Condition S tatus Joint Pain Shoulder Left 04/21/2024 Villa Garcia PA-C Active Last Documented On 5 9:20AM ; [facility] SHOULDER REGION DIS NEC 01/07/2012 Asuncion kurtz MD Active Last Documented On 2 11:48AM ; [facility], [facility] Joint Pain Shoulder Right 12/17/2011 Asuncion Isbell MD Active Last Documented On 2 10:15AM ; [facility], [facility] Plan of Treatment Findings Encounter Date Patient screened for future fall risk: documentation of any fall with injury in past year Physician Specified with Villa Garcia PA-C 04/21/2024 Last Documented On 5 12:59PM ; [facility] Instructions to patient Lose weight Last Documented On 5 9:23AM ; [facility], [facility] Assessments Includes: Assessments for all patient encounters Findings Encounter Date Overweight Physician Specified with Villa Garcia PA-C 04/21/2024 Last Documented On 5 12:59PM ; [facility] Instructions Includes: Instructions for all patient encounters Instructions to patient Lose weight Last Documented On 5 9:23AM ; [facility] Medical Equipment - Implanted Devices Includes: Current and historical Devices No Medical Equipment Recorded Medications Includes: Current and historical Medications Current Medications (continue as prescribed) Atorvastatin Calcium 20 MG Oral Tablet 04/12/2024 Pr ovider: Lauraholly Verito SHAHIDN Diagnosis: Last Documented On 5 9:20AM By Ledy Gallegos ; [facility], [facility] Lisinopril 10 MG Oral Tablet 04/12/2024 Provider: Mela Sellers APRN Diagnosis: Last Documented On 5 9:20AM By Ledy Gallegos ; [facility], [facility] Loratadine 10 MG Oral Tablet 04/12/2024 Provider: Mela Sellers APRN Diagnosis: Last Documented On 5 9:20AM By Ledy Gallegos ; [facility], [facility] Clopidogrel Bisulfate 75 MG Oral Tablet 04/11/2024 P rovider: Trinityreiholly Reyferoz ARAUJO Diagnosis: Last Documented On 5 9:20AM By Ledy Gallegos ; [facility], [facility] Fish Oil OIL 12/17/2011 Provider: Diagnosis: Last Documented On 2 10:17AM By Peter 1 User ; [facility], [facility] Garlic Oil 1500 MG OR CAPS 12/17/2011 Provider: Diagnosis: Last Documented On 2 10:17AM By Peter 1 User ; [facility], [facility] Past Medications on file Percocet 10-325 MG OR TABS 01/07/2012 - 01/17/2012 Pro vider: Asuncion Isbell MD Diagnosis: alb Last Documented On 2 12:35PM By Viviane Marmolejo ; [facility], [facility] NOTE EX MISC 01/02/2012 - 01/03/2012 Provider: Debora Isbell MD Diagnosis: completed prior auth form taty Soriano/ faxed to / will wait for response//kw Last Documented On 2 1:39PM By Green 1 User ; [facility], [facility] Percocet 7.5-325 MG OR TABS 12/31/2011 - 01/07/2012 Pr ovider: Asuncion Isbell MD Diagnosis: sx on 01-01-12//kw Last Documented On 2 10:39AM By Green 1 User ; [facility], [facility] Butrans 10 MCG/HR TD PTWK 12/31/2011 - 01/28/2012 Prov ider: Asuncion Isbell MD Diagnosis: sx on 12-31-kw Last Documented On 2 10:40AM By Green 1 User ; [facility], [facility] Medications Administered Includes: Administered Medications in patient's chart No Administered Medications Recorded Vital Signs Includes: Vital Signs from 01/19/2024 through 01/18/2025 Vital Name 04/21/2024 09:23A Height (in) 72 Weight (lb) 225 Body Mass Index 30.5 Body Surface Area 2.2 Note: bfj Last Documented: On 04/21/2024 9:23AM ; [facility], [facility] Results Includes: Results from 01/19/2024 through 01/18/2025 No Results Recorded For Specified Dates History of Present Illness History of Present Illness not supported for this document type No History of Present Illness Recorded Social History Description Last Updated Caffeine use 04/21/2024 Last Documented On 5 12:59PM ; [facility], [facility] Exercising regularly 04/21/2024 Last Documented On 5 12:59PM ; [facility], [facility] No recent change in diet 04/21/2024 Last Documented On 5 12:59PM ; [facility], [facility] Not a current smoker. 04/21/2024 Last Documented On 5 12:59PM ; [facility], [facility] Not using alcohol 04/21/2024 Last Documented On 5 12:59PM ; [facility], [facility] Not using drugs 04/21/2024 Last Documented On 5 12:59PM ; [facility], [facility] No tobacco use 04/18/2012 Last Documented On 3 4:26PM ; [facility], [facility] Smoking status : Never smoked/ Recode: 4 04/18/2012 Last Documented On 3 4:26PM ; [facility], [facility] Procedures and Surgical History Includes: Procedures from 01/19/2024 through 01/18/2025 Procedures Code Diagnosis Performing Provider Service Location Service Date Triamcinolone/Giovanni alog, 10mg per cc [id number] Complete rotatr-cuff tear/ruptr of left shoulder, not trauma Villa Garcia PA-C [facility] 04/21/2024 Last Documented On 5 11:04AM ; [facility], [facility] DRAIN/INJECT, JOINT/BURSA (LEFT) Complete rotatr-cuff tear/ruptr of left shoulder, not trauma Villa Garcia PA-C [facility] 04/21/2024 Last Documented On 5 11:04AM ; [facility] Surgical History Last Updated History of appendectomy 04/21/2024 Last Documented On 5 12:59PM ; [facility], [facility] History of Previous Fractures 04/21/2024 Last Documented On 5 12:59PM ; [facility], [facility] Medical History Includes: Medical History in patient's chart Description Last Updated History of History of Cancer 04/21/2024 Last Documented On 5 12:59PM ; [facility], [facility] History of Stroke 04/21/2024 Last Documented On 5 12:59PM ; [facility] Family History Includes: Family History in patient's chart Description Last Updated Diabetes mellitus 04/21/2024 Last Documented On 5 12:59PM ; [facility] Family history of cancer 04/21/2024 Last Documented On 5 12:59PM ; [facility], [facility] Family history of heart disease 04/22/19 Last Documented On 5 12:59PM ; [facility], [facility] Family history of systemic hypertension 04/21/2024 Last Documented On 5 12:59PM ; [facility], [facility] Stroke / Seizures 04/21/2024 Last Documented On 5 12:59PM ; [facility], [facility] Review of Systems Review of Systems not supported for this document type No Review of Systems Recorded Mental Status Description No anxiety Functional Status No Functional Status Recorded Physical Exam Physical Exam not supported for this document type No Physical Exam Recorded Allergies Includes: Active, inactive, and resolved Allergies No Known Allergies Encounters Includes: Encounters from 01/19/2024 through 01/18/2025 Encounter Provider Location Date Check-In Time Check-Out Time Diagnosis Physician Specified Villa Garcia PA-C [facility] 04/22/19 25 8:57AM 9:49AM Overweight Insurance Includes: Active Insurance Policies Plan Name Member ID Group # Subscriber Relationship Effect nadiya Dates 1 - Medicare Part B [facility] [id number] Vincent Batres Self 2 - AARP [facility] [employer] [id number] Vincent Batres Self Clinical Notes Includes: Signed Clinical Notes starting from 02/01/2022 * Progress note Date Encounter Last Documented by 04/21/2024 Physician Specified Last cynthia garcia on 04/21/2024; 12:59 PM, Villa Garcia PA-C; [facility], [facility] Active Problems & Conditions - Joint Pain, [...]
--- OUTSIDE RECORDS SUMMARY | 2025-01-18 11:44 | XMS_ITS | Encounter Summary ---
Author Organization Healthcare Address [address] [place] [address] Care Team Providers Care Apartment Community Assistant Manager Name Role Phone Mela Sellers APRN Primary Care Provider [phone] Encounter Details Date Type Department Care Team (Late st Contact Info) Description 03/02/2024 Lab Requisition [facility] [address] [place] [address] Nile High MD [address] [place] [address] Encounter for general adult medical examination without abnormal findings Social History Tobacco Use Types Packs/Day Years Used Date Smoking Tobacco: Never Smokeless Tobacco: Never Alcohol Use Standard Drinks/Week Comments Never 0 (1 standard drink = 0.6 oz [...] by your partner or ex-partner? No 02/25/2024 Hunger Vital Sign Answer Date Recorded Within [...] any time in the past 12 m [facility], were you homeless or living in [...] drink first t adam in the morning (EYE-VOCATIONAL NURSE) to steady your nerves or to [...] as of this encounter Functional Status * Calculated C-SSRS Risk Score (Lifetime/Recent) Answer Date of Assessment Author No Risk Indicated 03/02/2024 8:00 AM Luna Modi, RN * Question Answer Date of Assessment Author 1. Wish to be (Past 1 Month) No 025 8:00 AM EST Luna Brar, MEDARDO 2. Non-Specific Active Suici tata Thoughts (Past 1 Month) No 03/02/2024 8:00 AM EST Luna Brar , MEDARDO 6. Suicidal Behavior (Lifetime) No 8:00 AM EST Luna Brar RN documented as of this encounter Plan of Treatment Upcoming Encounters Date Type Department Care Team (Late st Contact Info) Description 02/22/2025 11:00 AM EST Office Visit [facility] [address] [place] [address] Feliciano Villavicencio, [address] [place] [phone] 03/15/2025 10:00 AM EST Appointment [facility] [address] [place] [address] 03/15/2025 12:40 PM EST Office Visit [facility] [address] [place] [phone] Annette Hill, PA [address] [place] [address] 06/03/2025 12:30 PM EDT Office Visit [facility] [address] [place] [phone] Nile Rodriguez DO [address] [place] [address] documented as of this encounter Procedures Procedure Name Priority Date/Time Associated Diagnosis Comments MULTI DRUG RESISTANCE TEST Routine 03/02/2024 8:38 AM EST Encounter for general adult medical examination without abnormal findings documented in this encounter Results * Multi Drug Resistance Test (03/02/2024 8:38 AM EST) Culture No growth at day 1 03/03/2024 6:57 AM EST [facility] Swab (Nares and Leigh Rectal) 03/02/2024 8:38 AM EST 03/02/2024 9:16 AM EST us Nile High MD LAB MICROBIOLOGY - GEN ERAL ORDERABLES Final Result Performing Organization Address City/State/[facility] Co de Phone Number [facility] [address] [place] [address] documented in this encounter Visit Diagnoses Diagnosis Encounter for general adult medical examination without abnormal findings documented in this encounter Additional Health Concerns Assessment Noted Time A Body Mass Index follow-up plan has been documented for the patient 03/02/2024 1:41 PM EST documented as of this encounter Care Teams Apartment Community Assistant Manager Relationship Specialty Start Date End Date Mela Sellers APRN [address] [place] [address] PCP - General 02/25/24 documented as of this encounter
== END 2025-01-15 23:59 ==
LOC: LAB.DROPOF 01-18 10:57
PROVIDERS: PCP Nurse Practitioner Family; Visit Provider Student in an Organized Health Care Education/Training Program
DX: R50.9 Fever, unspecified (principal)
CPT/HCPCS: 87631